=== PATIENT | female | born 1945 | race Caucasian/White ===

== ENCOUNTER 2016-11-03 15:48 | Emergency (ER) | payer MEDICARE, OTHER ==
[~2016-11-03] VITALS: Ht 165.1 cm; Wt 101.4 kg
[~2016-11-03 15:48] MED LIST: ACIPHEX20 MG PO; ACTOS30 MG PO; ALBUTEROL0.09 MG/A1 IH; ALLEGRA180 MG PO; ALLOPURINOL300 MG PO; AMBIEN 10MG10 MG PO; ARICEPT10 MG PO; ASPIRIN 32325 MG/TA1 PO; ASPIRIN 32325 MG/TAB PO; ASPIRIN E.C. 8181 MG PO; ATENOLOL25 MG PO; ATIVAN 0.50.5 MG/TAB PO; AVANDIA2 MG PO; CLEOCIN HC150 MG/CAP PO; CYMBALTA 30MG30 MG PO; CYMBALTA 60MG60 MG PO; DIOVAN160 M1 PO; DIOVAN40 MG PO; DULCOLAX TAB5 MG PO; FEXOFENADINE60 MG PO; GENTLE LAXATIVE10 MG RC; HCTZ 25MG25 MG PO; HUMALOG100 U/ML SC; HUMALOG100 U/ML SQ; IPRATROPIUM BROM3 M1 IH; LAMICTAL 100MG100 MG PO; LANTUS100 U/ML SQ; LEVOTHYROXIN0.088 MG PO; LEVOTHYROXINE0.1 MG PO; LIPITOR 40MG TA40 MG PO; LOPRESSOR 225 MG/TAB PO; LOPRESSOR PO; LOTRIMIN RC; MELATONIN5 M1 SL; MULTIPLE VITAMI1 CAP PO; NEXIUM 20MG CAP20 MG PO; NORCO 325 MG-7.1 TAB PO; OXY IR5 MG PO; PERCOCET 325 MG1 TA2 PO; PLAVIX 75MG TAB75 MG PO; PROAIR HFA0.09 MG/AC IH; SENOKOT S 50 MG1 TAB PO; SINGULAIR10 MG PO; TRICOR 48MG48 MG PO; TYLENOL 325MG325 MG PO; ZOCOR80 MG PO; ZYLOPRIM 300MG300 MG PO; lantus SQ
[2016-11-03 15:50] VITALS: TEMP 97.1
[2016-11-03] MEDS ORDERED: ACTOS30 MG PO (16:19)
[2016-11-03] MEDS ORDERED: TIROSINT88 MC1 PO (16:24)
[2016-11-03] MEDS ORDERED: HCTZ 25MG TAB25 MG PO (16:25)
[2016-11-03] MEDS ORDERED: DIOVAN 160MG160 MG PO (16:25)
[2016-11-03] MEDS ORDERED: CLOTRIM ANTIFUNGAL1% TP (16:26)
[2016-11-03] MEDS ORDERED: MELATONIN5 M1 SL (16:26)
[2016-11-03 16:38] VITALS: BP 148/92; PULSE 72
== END 2016-11-03 16:42 | disposition home or self-care (01) ==
LOC: COL.ER 15:48
DX: S09.90XA Unspecified injury of head, initial encounter (principal); S00.03XA Contusion of scalp, initial encounter; W01.198A Fall on same level from slipping, tripping and stumbling with subsequent striking against other object, initial encounter; Y92.481 Parking lot as the place of occurrence of the external cause; E11.9 Type 2 diabetes mellitus without complications; Z79.02 Long term (current) use of antithrombotics/antiplatelets; Z79.4 Long term (current) use of insulin

== ENCOUNTER → 2016-12-01 | Outpatient (CLI) | payer MEDICARE, OTHER ==
[~2016-12-01] MED LIST changes: +CLOTRIM ANTIFUNGAL1% TP; +DIOVAN 160MG160 MG PO; +HCTZ 25MG TAB25 MG PO; +LASIX 80MG TABL80 MG PO; +NAMZARIC1 ECC PO; +TIROSINT88 MC1 PO; +VITAMIN D 400400 IU PO
== END ==
LOC: BHSO 11:10
DX: F41.1 Generalized anxiety disorder (principal)

== ENCOUNTER 2017-04-17 11:39 | Emergency (ER) | payer MEDICARE, OTHER ==
[~2017-04-17] VITALS: Ht 162.6 cm; Wt 114.5 kg
[~2017-04-17 11:39] MED LIST changes: -LASIX 80MG TABL80 MG PO; -NAMZARIC1 ECC PO; -VITAMIN D 400400 IU PO
[2017-04-17 11:40] VITALS: TEMP 96.4
[2017-04-17 12:32] LABS: BASO % 0.5 % (0.0-2.0); EOS # 0.1 (0.0-0.7); GRAN # 3.6 (1.4-6.5); GRAN % 59.6 % (42.2-75.2); LYMPH # 1.9 (1.2-3.4); LYMPH % 31.2 % (20.0-51.0); MEAN CELL VOLUME 98 fl (80.0-100.0); MEAN CORPUSCULAR HGB CONC 34 g/dl (33.0-37.0); MEAN PLATELET VOLUME 9.5 fl (7.4-10.4); MONO # 0.4 (0.1-0.6); PLATELET COUNT 244 K/mm3 (130-400); RED BLOOD COUNT 3.41 M/mm3 (4.10-5.30); REDCELL DISTRIBUTION WIDTH-CV 14.6 % (11.5-14.5)
[2017-04-17 12:35] LABS: HEMATOCRIT 33.3 % (37.0-47.0); HEMOGLOBIN 11.3 g/dl (12.5-16.0); MEAN CORPUSCULAR HEMOGLOBIN 33 pg (27.0-31.0)
[2017-04-17 13:02] LABS: ADJUSTED CALCIUM 10.4 mg/dL (8.4-10.2); ALBUMIN 4.2 gm/dL (3.5-5.0); BILIRUBIN,TOTAL 0.8 mg/dL (0.0-1.0); CALCIUM 10.6 mg/dL (8.4-10.2); CREATININE, serum 1.24 mg/dL (0.52-1.25); TOTAL PROTEIN 7.7 gm/dL (6.4-8.2)
[2017-04-17 13:03] LABS: POTASSIUM 5.3 mmol/L (3.4-5.0)
[2017-04-17] MEDS ORDERED: LASIX 80MG TABL80 MG PO (13:28)
[2017-04-17] MEDS ORDERED: NAMZARIC1 ECC PO (13:34)
[2017-04-17] MEDS ORDERED: VITAMIN D 400400 IU PO (13:36)
[2017-04-17 17:55] VITALS: BP 169/144; PULSE 118
== END 2017-04-17 18:00 | disposition short-term general hospital (02) ==
LOC: COL.ER 11:39
PROVIDERS: Physician Assistant
DX: S42.291A Other displaced fracture of upper end of right humerus, initial encounter for closed fracture (principal); S52.502A Unspecified fracture of the lower end of left radius, initial encounter for closed fracture; S52.602A Unspecified fracture of lower end of left ulna, initial encounter for closed fracture; S09.90XA Unspecified injury of head, initial encounter; S00.83XA Contusion of other part of head, initial encounter; Y92.009 Unspecified place in unspecified non-institutional (private) residence as the place of occurrence of the external cause; W01.10XA Fall on same level from slipping, tripping and stumbling with subsequent striking against unspecified object, initial encounter; I25.10 Atherosclerotic heart disease of native coronary artery without angina pectoris; I10 Essential (primary) hypertension; E11.9 Type 2 diabetes mellitus without complications; Z79.4 Long term (current) use of insulin; R40.2412 Glasgow coma scale score 13-15, at arrival to emergency department; Z79.02 Long term (current) use of antithrombotics/antiplatelets; Z95.1 Presence of aortocoronary bypass graft
CPT/HCPCS: J1170; J2405

== ENCOUNTER → 2017-05-07 | Outpatient (CLI) | payer MEDICARE, OTHER ==
[~2017-05-07] MED LIST changes: +LASIX 80MG TABL80 MG PO; +NAMZARIC1 ECC PO; +VITAMIN D 400400 IU PO
[2017-05-07 11:18] LABS: MEAN CELL VOLUME 108 fl (80.0-100.0); MEAN CORPUSCULAR HGB CONC 31 g/dl (33.0-37.0); MEAN PLATELET VOLUME 9.2 fl (7.4-10.4); PLATELET COUNT 284 K/mm3 (130-400); RED BLOOD COUNT 2.77 M/mm3 (4.10-5.30); REDCELL DISTRIBUTION WIDTH-CV 17.1 % (11.5-14.5); WHITE BLOOD COUNT 6.5 K/mm3 (4.8-10.8)
[2017-05-07 11:32] LABS: ADJUSTED CALCIUM 10.2 mg/dL (8.4-10.2); BILIRUBIN,TOTAL 0.7 mg/dL (0.0-1.0); CALCIUM 10.2 mg/dL (8.4-10.2); CREATININE, serum 1.04 mg/dL (0.52-1.25); PHOSPHOROUS 3.6 mg/dL (2.5-4.5); POTASSIUM 4.6 mmol/L (3.4-5.0); TOTAL PROTEIN 7.2 gm/dL (6.4-8.2)
[2017-05-07 11:40] LABS: HEMOGLOBIN 9.3 g/dl (12.5-16.0); MEAN CORPUSCULAR HEMOGLOBIN 34 pg (27.0-31.0)
== END ==
LOC: COL.LAB 10:30
PROVIDERS: Internal Medicine
DX: N18.9 Chronic kidney disease, unspecified (principal)

== ENCOUNTER → 2017-06-16 | Outpatient (CLI) | payer MEDICARE, OTHER | LOC: COL.RAD 06-09 13:15 | DX: M75.122 Complete rotator cuff tear or rupture of left shoulder, not specified as traumatic (principal); M62.512 Muscle wasting and atrophy, not elsewhere classified, left shoulder; M19.012 Primary osteoarthritis, left shoulder; M75.82 Other shoulder lesions, left shoulder ==

== ENCOUNTER 2017-07-06 15:11 | Emergency (ER) | payer MEDICARE, OTHER ==
[~2017-07-06] VITALS: Ht 165.1 cm; Wt 104.5 kg
[2017-07-06 15:14] VITALS: TEMP 97.8
[2017-07-06 15:53] LABS: BASO % 0.7 % (0.0-2.0); EOS # 0.1 (0.0-0.7); EOS % 1.9 % (0-4.0); GRAN % 66.6 % (42.2-75.2); HEMOGLOBIN 12.1 g/dl (12.5-16.0); LYMPH # 1.4 (1.2-3.4); LYMPH % 24.2 % (20.0-51.0); MEAN CELL VOLUME 101 fl (80.0-100.0); MEAN CORPUSCULAR HEMOGLOBIN 33 pg (27.0-31.0); MEAN CORPUSCULAR HGB CONC 33 g/dl (33.0-37.0); MEAN PLATELET VOLUME 9.2 fl (7.4-10.4); MONO # 0.4 (0.1-0.6); MONO % 6.3 % (1.7-9.3); PLATELET COUNT 240 K/mm3 (130-400); RED BLOOD COUNT 3.67 M/mm3 (4.10-5.30); REDCELL DISTRIBUTION WIDTH-CV 13.6 % (11.5-14.5); WHITE BLOOD COUNT 5.9 K/mm3 (4.8-10.8)
[2017-07-06 15:56] LABS: PROTHROMBIN TIME 11.6 SECONDS (9.7-12.8)
[2017-07-06 16:09] LABS: ADJUSTED CALCIUM 10.2 mg/dL (8.4-10.2); ALANINE AMINOTRANSFERASE 21 U/L (9-52); ALBUMIN 4.2 gm/dL (3.5-5.0); ALKALINE PHOSPHATASE 104 U/L (50-136); ANION GAP 13 mmol/L (7-16); BILIRUBIN,TOTAL 0.6 mg/dL (0.0-1.0); BLOOD UREA NITROGEN 28 mg/dL (7-17); CALCIUM 10.4 mg/dL (8.4-10.2); CARBON DIOXIDE 23 mmol/L (22-30); CHLORIDE 103 mmol/L (98-107); CREATININE, serum 1.38 mg/dL (0.52-1.25); GLUCOSE 349 mg/dL (74-106); POTASSIUM 4.2 mmol/L (3.4-5.0); SODIUM 138 mmol/L (137-145); TOTAL PROTEIN 7.5 gm/dL (6.4-8.2)
[2017-07-06 16:21] LABS: B-TYPE NATRIURETIC PEPTIDE 713 pg/mL (0-125)
[2017-07-06 16:27] LABS: TROPONIN-I < 0.012 ng/mL (0.000-0.034)
[2017-07-06 17:18] VITALS: BP 190/94; PULSE 100
== END 2017-07-06 17:18 | disposition home or self-care (01) ==
LOC: COL.ER 15:11
PROVIDERS: Family Medicine
DX: F41.9 Anxiety disorder, unspecified (principal); E11.65 Type 2 diabetes mellitus with hyperglycemia; E83.52 Hypercalcemia; I25.10 Atherosclerotic heart disease of native coronary artery without angina pectoris; J44.9 Chronic obstructive pulmonary disease, unspecified; I12.9 Hypertensive chronic kidney disease with stage 1 through stage 4 chronic kidney disease, or unspecified chronic kidney disease; N18.9 Chronic kidney disease, unspecified; Z90.710 Acquired absence of both cervix and uterus; Z95.5 Presence of coronary angioplasty implant and graft; Z79.4 Long term (current) use of insulin; Z79.82 Long term (current) use of aspirin
CPT/HCPCS: J7030

== ENCOUNTER → 2017-08-06 | Outpatient (CLI) | payer MEDICARE, OTHER | LOC: BHSO 14:46 | DX: F41.1 Generalized anxiety disorder (principal) ==

== ENCOUNTER 2017-12-25 13:22 | Emergency (ER) | payer MEDICARE, OTHER ==
[~2017-12-25] VITALS: Ht 162.6 cm; Wt 113.2 kg
[2017-12-25 13:23] VITALS: TEMP 97.8
[2017-12-25] MEDS ORDERED: CYMBALTA 30MG30 MG PO (13:54)
[2017-12-25] MEDS ORDERED: PROLIA60 MG/ML SQ (13:55)
[2017-12-25 17:00] LABS: BASO % 0.3 % (0.0-2.0); EOS # 0.1 (0.0-0.7); EOS % 1.6 % (0-4.0); GRAN # 4.8 (1.4-6.5); GRAN % 68.6 % (42.2-75.2); LYMPH # 1.6 (1.2-3.4); LYMPH % 22.6 % (20.0-51.0); MEAN CELL VOLUME 101 fl (80.0-100.0); MEAN CORPUSCULAR HGB CONC 34 g/dl (33.0-37.0); MEAN PLATELET VOLUME 9.2 fl (7.4-10.4); MONO # 0.5 (0.1-0.6); MONO % 6.8 % (1.7-9.3); PLATELET COUNT 189 K/mm3 (130-400); RED BLOOD COUNT 3.02 M/mm3 (4.10-5.30); REDCELL DISTRIBUTION WIDTH-CV 14.2 % (11.5-14.5)
[2017-12-25 17:04] LABS: HEMATOCRIT 30.4 % (37.0-47.0); HEMOGLOBIN 10.2 g/dl (12.5-16.0); MEAN CORPUSCULAR HEMOGLOBIN 34 pg (27.0-31.0)
[2017-12-25 17:10] LABS: CREATININE, serum 1.27 mg/dL (0.52-1.25); POTASSIUM 4.8 mmol/L (3.4-5.0)
[2017-12-25 20:37] VITALS: BP 123/61; PULSE 90
== END 2017-12-25 21:07 | disposition short-term general hospital (02) ==
LOC: COL.ER 13:22
PROVIDERS: Emergency Medicine
DX: S83.104A Unspecified dislocation of right knee, initial encounter (principal); I72.4 Aneurysm of artery of lower extremity; Z98.890 Other specified postprocedural states; Z79.4 Long term (current) use of insulin; W18.39XA Other fall on same level, initial encounter; X50.0XXA Overexertion from strenuous movement or load, initial encounter; Y92.410 Unspecified street and highway as the place of occurrence of the external cause
CPT/HCPCS: J2704; J2765; J3010; L1846; Q9967

== ENCOUNTER → 2017-12-31 | Outpatient (CLI) | payer MEDICARE, OTHER ==
[~2017-12-31] MED LIST changes: +PROLIA60 MG/ML SQ
== END ==
LOC: BHSO 08:55
DX: F33.41 Major depressive disorder, recurrent, in partial remission (principal)
CPT/HCPCS: G0463

== ENCOUNTER → 2018-01-04 | Outpatient (REF) ==
[2018-01-04 14:31] LABS: ALBUMIN 3.3 gm/dL (3.5-5.0); CALCIUM 10.6 mg/dL (8.4-10.2); CREATININE, serum 1.5 mg/dL (0.52-1.25); PHOSPHOROUS 2.1 mg/dL (2.5-4.5); POTASSIUM 4.7 mmol/L (3.4-5.0)
[2018-01-05 00:24] LABS: PTH,INTACT 69.6 pg/mL (6.6-88.9)
== END ==
LOC: ZLAB.STJ 14:03
PROVIDERS: Internal Medicine
DX: N18.3 Chronic kidney disease, stage 3 (moderate) (principal); E21.3 Hyperparathyroidism, unspecified; Z86.39 Personal history of other endocrine, nutritional and metabolic disease

== ENCOUNTER → 2018-01-05 | Outpatient (CLI) | payer MEDICARE, OTHER | LOC: COL.RAD 14:53 | DX: I72.4 Aneurysm of artery of lower extremity (principal); I97.621 Postprocedural hematoma of a circulatory system organ or structure following other procedure; K44.9 Diaphragmatic hernia without obstruction or gangrene; K56.41 Fecal impaction; Z96.653 Presence of artificial knee joint, bilateral; Z95.820 Peripheral vascular angioplasty status with implants and grafts | CPT/HCPCS: Q9967 ==

== ENCOUNTER → 2018-01-17 | Outpatient (REF) ==
[2018-01-17 09:31] LABS: COLLECTION METHOD CLEAN CATCH
[2018-01-17 09:37] LABS: PH 5 (5-8); SQUAMOUS EPITHELIAL 0-2 /hpf; URINE APPEARANCE Clear; URINE BACTERIA None Seen /hpf; URINE BILIRUBIN Negative (NEGATIVE); URINE BLOOD Negative (NEGATIVE); URINE COLOR Yellow; URINE GLUCOSE Negative (NEGATIVE); URINE KETONE Negative (NEGATIVE); URINE LEUKOCYTE ESTERASE Negative (NEGATIVE); URINE NITRATE Negative (NEGATIVE); URINE PROTEIN(semi-quant) 1+ (NEGATIVE); URINE UROBILINOGEN Negative (NEGATIVE)
== END ==
LOC: ZLAB.STJ 09:27
PROVIDERS: Internal Medicine
DX: N17.9 Acute kidney failure, unspecified (principal)

== ENCOUNTER → 2018-01-24 | Outpatient (REF) ==
[2018-01-24 09:51] LABS: HEMATOCRIT 31.9 % (37.0-47.0); HEMOGLOBIN 10.3 g/dl (12.5-16.0)
[2018-01-24 10:05] LABS: ALBUMIN 3.6 gm/dL (3.5-5.0); CALCIUM 10.5 mg/dL (8.4-10.2); CREATININE, serum 1.31 mg/dL (0.52-1.25); PHOSPHOROUS 3.1 mg/dL (2.5-4.5); POTASSIUM 3.9 mmol/L (3.4-5.0)
[2018-01-24 22:44] LABS: PTH,INTACT 67.5 pg/mL (6.6-88.9)
[2018-01-25 00:24] LABS: URINE MICROALBUMIN 62.9 mg/dL (0.0-1.7)
== END ==
LOC: ZLAB.STJ 09:40
PROVIDERS: Internal Medicine
DX: E55.9 Vitamin D deficiency, unspecified (principal); N18.3 Chronic kidney disease, stage 3 (moderate); R80.8 Other proteinuria; M81.0 Age-related osteoporosis without current pathological fracture; E21.3 Hyperparathyroidism, unspecified

== ENCOUNTER → 2018-01-27 | Outpatient (REF) ==
[2018-01-27 09:27] LABS: COLLECTION METHOD CLEAN CATCH
[2018-01-27 09:35] LABS: MUCOUS Present /lpf; PH 5 (5-8); SQUAMOUS EPITHELIAL 0-2 /hpf; URINE APPEARANCE Clear; URINE BACTERIA None Seen /hpf; URINE BILIRUBIN Negative (NEGATIVE); URINE BLOOD Negative (NEGATIVE); URINE COLOR Yellow; URINE GLUCOSE 1+ (NEGATIVE); URINE KETONE Negative (NEGATIVE); URINE LEUKOCYTE ESTERASE Negative (NEGATIVE); URINE NITRATE Negative (NEGATIVE); URINE PROTEIN(semi-quant) 2+ (NEGATIVE); URINE UROBILINOGEN Negative (NEGATIVE)
== END ==
LOC: ZLAB.STJ 09:22
PROVIDERS: Internal Medicine Gastroenterology
DX: R30.0 Dysuria (principal)

== ENCOUNTER 2018-03-04 09:48 | Emergency (ER) | payer MEDICARE, OTHER ==
[~2018-03-04] VITALS: Ht 165.1 cm; Wt 115.5 kg
[~2018-03-04 09:48] MED LIST changes: -ASPIRIN 32325 MG/TA1 PO
[2018-03-04 09:59] VITALS: BP 139/80; PULSE 104; TEMP 97.7
[2018-03-04] MEDS ORDERED: LASIX 20MG TABL20 MG PO (10:16)
[2018-03-04] MEDS ORDERED: PEPCID 20MG TAB20 MG PO (10:21)
[2018-03-04 11:13] LABS: BASO % 0.5 % (0.0-2.0); EOS # 0.2 (0.0-0.7); EOS % 3.1 % (0-4.0); GRAN # 3.8 (1.4-6.5); GRAN % 60.5 % (42.2-75.2); LYMPH # 1.8 (1.2-3.4); LYMPH % 28.8 % (20.0-51.0); MEAN CELL VOLUME 102 fl (80.0-100.0); MEAN CORPUSCULAR HEMOGLOBIN 33 pg (27.0-31.0); MEAN CORPUSCULAR HGB CONC 33 g/dl (33.0-37.0); MEAN PLATELET VOLUME 9.2 fl (7.4-10.4); MONO # 0.4 (0.1-0.6); MONO % 6.8 % (1.7-9.3); PLATELET COUNT 234 K/mm3 (130-400); RED BLOOD COUNT 3.32 M/mm3 (4.10-5.30); REDCELL DISTRIBUTION WIDTH-CV 15.7 % (11.5-14.5)
[2018-03-04 11:15] LABS: HEMATOCRIT 33.7 % (37.0-47.0)
[2018-03-04 11:22] LABS: INR 0.9 (0.8-3.0); PROTHROMBIN TIME 10.6 SECONDS (9.7-12.8)
[2018-03-04 11:25] LABS: CALCIUM 9.9 mg/dL (8.4-10.2); CREATININE, serum 1.34 mg/dL (0.52-1.25); PARTIAL THROMBOPLASTIN TIME 33.3 SECONDS (26.0-37.0)
== END 2018-03-04 12:00 | disposition home or self-care (01) ==
LOC: COL.ER 09:48
PROVIDERS: Physician Assistant
DX: H11.32 Conjunctival hemorrhage, left eye (principal); I25.10 Atherosclerotic heart disease of native coronary artery without angina pectoris; I10 Essential (primary) hypertension; Z79.02 Long term (current) use of antithrombotics/antiplatelets; Z79.82 Long term (current) use of aspirin

== ENCOUNTER → 2019-07-03 | Outpatient (CLI) | payer MEDICARE, OTHER ==
[~2019-07-03] MED LIST changes: +LASIX 20MG TABL20 MG PO; +PEPCID 20MG TAB20 MG PO
[2019-07-04 07:38] LABS: COLLECTION METHOD CLEAN CATCH
[2019-07-04 07:39] LABS: MUCOUS Present /lpf; PH 5 (5-8); URINE APPEARANCE Cloudy; URINE BACTERIA Rare /hpf; URINE BILIRUBIN Negative (NEGATIVE); URINE BLOOD 1+ (NEGATIVE); URINE COLOR Yellow; URINE GLUCOSE 1+ (NEGATIVE); URINE KETONE Negative (NEGATIVE); URINE LEUKOCYTE ESTERASE 2+ (NEGATIVE); URINE NITRATE Negative (NEGATIVE); URINE PROTEIN(semi-quant) 2+ (NEGATIVE); URINE UROBILINOGEN Negative (NEGATIVE)
== END ==
LOC: ZLAB.STJ 14:30
PROVIDERS: Internal Medicine
DX: R35.0 Frequency of micturition (principal)

== ENCOUNTER → 2019-08-21 | Outpatient (CLI) | payer MEDICARE, OTHER ==
[~2019-08-21] MED LIST changes: +BENICAR 20MG TA20 MG PO; +CALCITRIOL PO; +CALCIUM CITRATE1 TA1 PO; +HUMALOG PEN100 U/ML SQ; +IMDUR 60MG60 MG/TAB PO; +LEVEMIR FLEX100 U/ML SQ; +NITROSTAT0.4 MG/TAB SL; -PEPCID 20MG TAB20 MG PO; +PEPCID40 MG PO
== END ==
LOC: BHSO 14:49
DX: F33.1 Major depressive disorder, recurrent, moderate (principal)
CPT/HCPCS: G0463

== ENCOUNTER 2019-10-04 15:54 | Emergency (ER) | payer MEDICARE, OTHER ==
[~2019-10-04] VITALS: Ht 165.1 cm; Wt 123.2 kg
[2019-10-04 16:18] VITALS: TEMP 97.2
[2019-10-04 17:49] VITALS: BP 164/79; PULSE 74
== END 2019-10-04 17:49 | disposition home or self-care (01) ==
LOC: COL.ER 15:54
DX: M79.652 Pain in left thigh (principal); R58 Hemorrhage, not elsewhere classified; E66.01 Morbid (severe) obesity due to excess calories; I10 Essential (primary) hypertension; E11.9 Type 2 diabetes mellitus without complications; I25.10 Atherosclerotic heart disease of native coronary artery without angina pectoris; Z90.89 Acquired absence of other organs; Z79.4 Long term (current) use of insulin; Z79.02 Long term (current) use of antithrombotics/antiplatelets; Z79.82 Long term (current) use of aspirin; Z95.9 Presence of cardiac and vascular implant and graft, unspecified

== ENCOUNTER 2019-12-12 18:00 | Inpatient (IN) | payer MEDICARE, OTHER ==
[~2019-12-12] VITALS: Ht 162.6 cm; Wt 118.5 kg
[2019-12-12] MEDS ORDERED: PROZAC 10MG10 MG PO (18:27)
[2019-12-12 20:19] LABS: BASO % 0.4 % (0.0-2.0); EOS # 0.1 (0.0-0.7); EOS % 1.2 % (0-4.0); GRAN # 5.4 (1.4-6.5); GRAN % 77.5 % (42.2-75.2); LYMPH # 1.1 (1.2-3.4); MEAN CELL VOLUME 103 fl (80.0-100.0); MEAN CORPUSCULAR HGB CONC 31 g/dl (33.0-37.0); MEAN PLATELET VOLUME 10.1 fl (7.4-10.4); MONO # 0.3 (0.1-0.6); MONO % 4.5 % (1.7-9.3); PLATELET COUNT 170 K/mm3 (130-400); RED BLOOD COUNT 3.05 M/mm3 (4.10-5.30); REDCELL DISTRIBUTION WIDTH-CV 15.2 % (11.5-14.5)
[2019-12-12 20:23] LABS: HEMATOCRIT 31.5 % (37.0-47.0); HEMOGLOBIN 9.8 g/dl (12.5-16.0); MEAN CORPUSCULAR HEMOGLOBIN 32 pg (27.0-31.0)
[2019-12-12 20:26] LABS: ALBUMIN 3.8 gm/dL (3.5-5.0); BILIRUBIN,TOTAL 0.3 mg/dL (0.0-1.0); CALCIUM 9.3 mg/dL (8.4-10.2); CREATININE, serum 1.61 (0.52-1.25); POTASSIUM 4.8 mmol/L (3.4-5.0)
--- NOTE | 2019-12-12 22:37 | NUR ---
Pt. arrived to the floor via stretcher. Pt. is A&OX3, assessment complete. INT to rt. forearm patent. Bilateral pedal pulses +2. Imobilizer brace to rt. knee. Pt. denies pain or other needs, call light within reach.
[2019-12-12 23:20] VITALS: BP 165/59; PULSE 91; TEMP 98.2
[2019-12-13] MEDS ORDERED: ZOLOFT 100MG100 MG PO (00:05)
[2019-12-13 03:27] VITALS: BP 148/50; PULSE 81; TEMP 98.3
[2019-12-13 08:23] LABS: BASO % 0.3 % (0.0-2.0); EOS # 0.1 (0.0-0.7); EOS % 1.8 % (0-4.0); GRAN # 3.8 (1.4-6.5); GRAN % 61.3 % (42.2-75.2); LYMPH # 1.8 (1.2-3.4); LYMPH % 28.2 % (20.0-51.0); MEAN CELL VOLUME 105 fl (80.0-100.0); MEAN CORPUSCULAR HGB CONC 31 g/dl (33.0-37.0); MEAN PLATELET VOLUME 9.8 fl (7.4-10.4); MONO # 0.5 (0.1-0.6); MONO % 8.1 % (1.7-9.3); PLATELET COUNT 164 K/mm3 (130-400); RED BLOOD COUNT 2.58 M/mm3 (4.10-5.30); REDCELL DISTRIBUTION WIDTH-CV 15.6 % (11.5-14.5)
[2019-12-13 08:31] LABS: HEMOGLOBIN 8.3 g/dl (12.5-16.0); MEAN CORPUSCULAR HEMOGLOBIN 32 pg (27.0-31.0)
[2019-12-13 08:32] VITALS: BP 141/46; PULSE 78; TEMP 97.6
[2019-12-13 08:33] LABS: CALCIUM 8.4 mg/dL (8.4-10.2); CREATININE, serum 1.58 (0.52-1.25); POTASSIUM 4.1 mmol/L (3.4-5.0)
--- NOTE | 2019-12-13 09:30 | NUR ---
Patient alert and oriented, answers questions appropriately. See assessment. Bruising noted to bilateral eyes, vision normal. RLE with brace in place, pulses palpable. NWB to RLE. No c/o pain or discomfort.
--- NOTE | 2019-12-13 10:38 | NUR ---
Dr Eldridge notified of consult.
--- NOTE | 2019-12-13 11:17 | NUR ---
Room Cleaner met with patient to discuss discharge planning. Patient has lived at [facility] for about two years with her Fritz (ph#[phone]). Patient states her Fritz has Parkinsons. Patient sees Dr. Ernandez for primary care and has her medications administered by the staff at [place]. Patient uses a CPAP and electric scooter at home. Patient is currently on oxygen but reports she normally does not wear oxygen. Patient reports she is independent with ADLS and can normally transfer independently to and from her scooter. Patient has DPOA paperwork located in EMR. Patient states she plans to return to [facility] upon discharge but that she may need to go to [facility] instead of returning to [place]. ZOE contacted Claudio at [facility] and faxed a referral. ZOE to continue to follow.
[2019-12-13 12:03] VITALS: BP 155/49; PULSE 88; TEMP 97.7
[2019-12-13 19:40] VITALS: BP 131/41; PULSE 94; TEMP 98.7
--- NOTE | 2019-12-13 20:00 | NUR ---
Report received. 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 A&Ox3. Assessment complete. VS stable. Denies pain/shortness of breath/nausea. Noted to have bruising to face/eyes/lips/nose. Also bruising to bilat lower ext. Immobolizer to right lower extremity. Plan of care discussed for this shift to include HS meds/CPAP/Calling for needs. Verbalizes understanding. Denies needs. Call light in reach. WIll monitor.
[2019-12-13 23:40] VITALS: BP 148/44; PULSE 61; TEMP 98.2
--- NOTE | 2019-12-14 04:16 | NUR ---
Up to comode with two assist. Voided without difficulty. C/O "upset stomach." States she usually takes pepcid-missed a dose at some point. Ordered for 0900 this am. Given at this time per request. Will monitor.
[2019-12-14 04:23] VITALS: BP 149/43; PULSE 78; TEMP 97.6
[2019-12-14 05:10] LABS: FOLATE (FOLIC ACID) 11.2 ng/mL (>=4.0)
[2019-12-14 07:14] LABS: BASO % 0.4 % (0.0-2.0); EOS # 0.2 (0.0-0.7); GRAN # 4.3 (1.4-6.5); LYMPH # 1.9 (1.2-3.4); LYMPH % 27.1 % (20.0-51.0); MEAN CELL VOLUME 106 fl (80.0-100.0); MEAN CORPUSCULAR HGB CONC 31 g/dl (33.0-37.0); MEAN PLATELET VOLUME 10.2 fl (7.4-10.4); MONO # 0.5 (0.1-0.6); MONO % 7.2 % (1.7-9.3); PLATELET COUNT 152 K/mm3 (130-400); RED BLOOD COUNT 2.53 M/mm3 (4.10-5.30); REDCELL DISTRIBUTION WIDTH-CV 15.7 % (11.5-14.5)
[2019-12-14 07:17] LABS: CALCIUM 8.4 mg/dL (8.4-10.2); CREATININE, serum 1.97 (0.52-1.25); POTASSIUM 5.1 mmol/L (3.4-5.0)
[2019-12-14 07:19] LABS: HEMATOCRIT 26.9 % (37.0-47.0); HEMOGLOBIN 8.2 g/dl (12.5-16.0); MEAN CORPUSCULAR HEMOGLOBIN 32 pg (27.0-31.0)
[2019-12-14 08:00] VITALS: BP 132/43; PULSE 71; TEMP 98.7
--- NOTE | 2019-12-14 08:00 | NUR ---
Patient in bed resting. Alert and oriented x 3. Assessment complete. Eccymosis noted to eyes/nose. RLE in brace. Pedal pulses palpable. Denies pain at this time. Patient states she has been using CPAP when sleeping. Denies further needs at this time.
--- NOTE | 2019-12-14 11:50 | NUR ---
First visit from the outside solar sales consultant. No needs right now.
[2019-12-14 12:55] VITALS: BP 130/40; PULSE 81; TEMP 98.1
--- NOTE | 2019-12-14 15:56 | NUR ---
Vice President Of Sales attended clinical rounds with the team and patient likely to discharge tomorrow. SW contacted Claudio at [facility] and faxed updates. ZOE to continue to follow.
[2019-12-14 16:00] VITALS: BP 148/41; PULSE 78; TEMP 98.2
--- NOTE | 2019-12-14 17:56 | NUR ---
Patient has done well throughout the day. Slept intermittently throughout the day. States she did not have a good night, CPAP on when sleeping. Denies pain at this time. Denies further needs at this time. Will report off to overnight cashier.
[2019-12-14 19:08] VITALS: BP 130/41; PULSE 82; TEMP 98.6
--- NOTE | 2019-12-14 20:00 | NUR ---
Report received. 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 A&Ox3. Assessment complete. VS stable. Denies pain/nausea/shortness of breath. States she is ready to go back to [facility] tomorrow. Immobolizer to Right lower extremity. Pedal pulses strong. Neuro check WNL. Denies questions/concerns. Call light in reach. Will monitor.
--- NOTE | 2019-12-14 23:00 | NUR ---
Up to bathroom at this time. Used walker-minimal assist. Movement much better this shift than previous. Was able to assist more. States she is having more pain tonight-rating 8/10 on pain scale to right knee-described as throbbing. Blaine given per dr benoit. Will monitor.
[2019-12-15] VITALS (7 sets, daily range): BP systolic 123–1232; BP diastolic 39–73; PULSE 58–74; TEMP 97.6–998.3
[2019-12-15 06:19] LABS: BASO % 0.5 % (0.0-2.0); EOS # 0.2 (0.0-0.7); EOS % 3.5 % (0-4.0); GRAN # 2.7 (1.4-6.5); GRAN % 47.5 % (42.2-75.2); LYMPH # 2.3 (1.2-3.4); LYMPH % 40.5 % (20.0-51.0); MEAN CELL VOLUME 106 fl (80.0-100.0); MEAN CORPUSCULAR HGB CONC 31 g/dl (33.0-37.0); MONO # 0.5 (0.1-0.6); MONO % 7.8 % (1.7-9.3); PLATELET COUNT 141 K/mm3 (130-400); RED BLOOD COUNT 2.44 M/mm3 (4.10-5.30); REDCELL DISTRIBUTION WIDTH-CV 15.6 % (11.5-14.5)
[2019-12-15 06:24] LABS: HEMATOCRIT 25.9 % (37.0-47.0); HEMOGLOBIN 7.9 g/dl (12.5-16.0); MEAN CORPUSCULAR HEMOGLOBIN 32 pg (27.0-31.0)
[2019-12-15 06:34] LABS: CALCIUM 8.6 mg/dL (8.4-10.2); CREATININE, serum 1.93 (0.52-1.25)
[2019-12-15 09:53] LABS: RETIC # 0.06 M/mm3 (0.02-0.16); RETIC % 2.7 % (0.5-3.52)
[2019-12-15 09:57] LABS: IRON,SERUM 29 ug/dL (35-150)
[2019-12-15 10:06] LABS: TOTAL IRON BINDING CAPACITY 302 ug/dL (265-497)
--- NOTE | 2019-12-15 15:44 | NUR ---
Curtain Framer attended clinical rounds with the team and patient to discharge to [facility] tomorrow. SW contacted Claudio and faxed updates. ZOE to continue to follow.
--- NOTE | 2019-12-15 17:13 | NUR ---
Sitting up on edge of bed eating supper.
--- NOTE | 2019-12-15 18:16 | NUR ---
Patient has done well throughout the day. Has been up to restroom throughout the day. States she has been able to move around more today than yesterday. Brace maintained to RLE. Pedal pulses intact. Denies pain throuhout the day. Sat up this afternoon for supper. Denies further needs at this time. Will report off to night auditor.
--- NOTE | 2019-12-15 20:00 | NUR ---
Report received. 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 Assessment complete. VS stable. A&Ox3. Denies pain/shortness of breath/nausea. Right forearm INT flushes without difficulty. Pedal Pulses +2 bilat. Immobolizer removed for adjustment to maintain proper alignment. Neuros WNL. Plan of care discussed for HS meds/bedside glucose/need for stool specimen. Denies questions/concerns. Call light in reach. Will monitor.
[2019-12-16 04:15] VITALS: BP 137/40; PULSE 53; TEMP 97.7
[2019-12-16 06:03] LABS: BASO % 0.5 % (0.0-2.0); EOS # 0.2 (0.0-0.7); EOS % 3.6 % (0-4.0); GRAN # 2.9 (1.4-6.5); GRAN % 50.3 % (42.2-75.2); LYMPH # 2.2 (1.2-3.4); LYMPH % 37.2 % (20.0-51.0); MEAN CELL VOLUME 106 fl (80.0-100.0); MEAN CORPUSCULAR HGB CONC 30 g/dl (33.0-37.0); MEAN PLATELET VOLUME 10.1 fl (7.4-10.4); MONO # 0.5 (0.1-0.6); MONO % 8.1 % (1.7-9.3); PLATELET COUNT 144 K/mm3 (130-400); REDCELL DISTRIBUTION WIDTH-CV 15.4 % (11.5-14.5)
[2019-12-16 06:11] LABS: CALCIUM 8.7 mg/dL (8.4-10.2); CREATININE, serum 1.79 (0.52-1.25); HEMATOCRIT 25.4 % (37.0-47.0); HEMOGLOBIN 7.7 g/dl (12.5-16.0); MEAN CORPUSCULAR HEMOGLOBIN 32 pg (27.0-31.0); POTASSIUM 4.8 mmol/L (3.4-5.0)
[2019-12-16 07:56] VITALS: BP 142/44; PULSE 66; TEMP 97.7
--- NOTE | 2019-12-16 08:00 | NUR ---
Patient in bed resting. Alert and oriented x 3. Assessment complete. Brace to RLE. Edema +2 noted. Denies pain at this time. Denies further needs at this time.
[2019-12-16] MEDS ORDERED: NOVOLOG 100U100 U/M1 SQ (11:24)
[2019-12-16] MEDS ORDERED: Desenex/Lotrimin AF TP (11:25)
[2019-12-16] MEDS ORDERED: NORCO 325 MG-51 TAB PO (11:29)
[2019-12-16] MEDS ORDERED: NATURAL IRON65 MG PO (11:36)
[2019-12-16 11:54] VITALS: BP 150/54; PULSE 65; TEMP 98.5
[2019-12-16 12:15] VITALS: BP 150/54; PULSE 65; TEMP 98.5
--- NOTE | 2019-12-16 13:45 | NUR ---
Patient transfering to [facility]. Attempted to call report to Monserrat COREY. iNT to right forarm discontinued. Brace to RLE. Denies pain. x1 assist to restroom and transfer to wheelchair. Denies further needs at this time. Patient out with surgical staff and [facility] staff.
--- NOTE | 2019-12-16 14:12 | NUR ---
ZOE received a call from provider's assistant store director about Patient being discharged today. ZOE contacted Claudio to inquire about transportation at 1230 or 100. Claudio indicated that patient can be picked up at 1:00, and reminded this ZOE about discharge paperwork. ZOE contacted providers assistant store director to inform of transport time.
--- NOTE | 2019-12-16 14:17 | NUR ---
SW did contact Patients to inform him that patient was discharging.
== END 2019-12-16 13:47 | DRG 560 ==
LOC: COL.ER 18:00 → SURG 21:18
PROVIDERS: Emergency Medicine; Nurse Practitioner Family; Physician Assistant; ADMIT Student in an Organized Health Care Education/Training Program
PROC: 0SWCXJZ Revision of Synthetic Substitute in Right Knee Joint, External Approach (ICD-10-PCS; principal; 2019-12-12)
DX: T84.022A Instability of internal right knee prosthesis, initial encounter (principal); Z68.41 Body mass index [BMI] 40.0-44.9, adult; Z91.81 History of falling; S02.2XXA Fracture of nasal bones, initial encounter for closed fracture; W05.2XXA Fall from non-moving motorized mobility scooter, initial encounter; I10 Essential (primary) hypertension; E78.5 Hyperlipidemia, unspecified; E66.01 Morbid (severe) obesity due to excess calories; Z66 Do not resuscitate; E03.9 Hypothyroidism, unspecified; E11.22 Type 2 diabetes mellitus with diabetic chronic kidney disease; I12.9 Hypertensive chronic kidney disease with stage 1 through stage 4 chronic kidney disease, or unspecified chronic kidney disease; N18.9 Chronic kidney disease, unspecified; I25.10 Atherosclerotic heart disease of native coronary artery without angina pectoris; Z95.1 Presence of aortocoronary bypass graft; G47.33 Obstructive sleep apnea (adult) (pediatric); Z96.653 Presence of artificial knee joint, bilateral; Z88.1 Allergy status to other antibiotic agents; Z88.8 Allergy status to other drugs, medicaments and biological substances; H43.11 Vitreous hemorrhage, right eye; D53.9 Nutritional anemia, unspecified; J45.909 Unspecified asthma, uncomplicated; F41.8 Other specified anxiety disorders; E20.9 Hypoparathyroidism, unspecified
CPT/HCPCS: OP; 99223-AI; 99232-AI; G0378; J1815; J2405; J2704; J7030; L1846

== ENCOUNTER → 2020-01-10 | Outpatient (CLI) | payer MEDICARE, OTHER ==
[~2020-01-10] MED LIST changes: +Desenex/Lotrimin AF TP; +NATURAL IRON65 MG PO; +NORCO 325 MG-51 TAB PO; +NOVOLOG 100U100 U/M1 SQ; +PROZAC 10MG10 MG PO; +ZOLOFT 100MG100 MG PO
[2020-01-10 14:38] LABS: CALCIUM 10.1 mg/dL (8.4-10.2); CREATININE, serum 1.86 (0.52-1.25); POTASSIUM 4.9 mmol/L (3.4-5.0)
== END ==
LOC: ZLAB.STJ 13:13
PROVIDERS: Internal Medicine
DX: E11.65 Type 2 diabetes mellitus with hyperglycemia (principal)

== ENCOUNTER → 2020-01-22 | Outpatient (CLI) | payer MEDICARE, OTHER ==
[2020-01-22 15:52] LABS: BASO % 0.6 % (0.0-2.0); EOS # 0.2 (0.0-0.7); EOS % 3.7 % (0-4.0); GRAN # 4.2 (1.4-6.5); GRAN % 64.6 % (42.2-75.2); HEMOGLOBIN 10.2 g/dl (12.5-16.0); LYMPH # 1.5 (1.2-3.4); LYMPH % 23.1 % (20.0-51.0); MEAN CELL VOLUME 103 fl (80.0-100.0); MEAN CORPUSCULAR HEMOGLOBIN 32 pg (27.0-31.0); MEAN CORPUSCULAR HGB CONC 31 g/dl (33.0-37.0); MEAN PLATELET VOLUME 10.4 fl (7.4-10.4); MONO # 0.5 (0.1-0.6); MONO % 7.5 % (1.7-9.3); PLATELET COUNT 235 K/mm3 (130-400)
[2020-01-22 15:54] LABS: HEMATOCRIT 32.8 % (37.0-47.0)
== END ==
LOC: ZLAB.STJ 14:01
PROVIDERS: Internal Medicine
DX: D64.9 Anemia, unspecified (principal)

== ENCOUNTER → 2020-02-14 | Outpatient (CLI) | payer MEDICARE, OTHER | LOC: BHSO 13:20 | DX: F06.32 Mood disorder due to known physiological condition with major depressive-like episode (principal) | CPT/HCPCS: G0463 ==

== ENCOUNTER → 2020-02-23 | Outpatient (CLI) | payer MEDICARE, OTHER ==
[2020-02-23 17:40] LABS: CALCIUM 10.1 mg/dL (8.4-10.2); CREATININE, serum 1.68 (0.52-1.25); POTASSIUM 4.8 mmol/L (3.4-5.0)
== END ==
LOC: ZLAB.STJ 16:00
PROVIDERS: Internal Medicine Nephrology
DX: I12.9 Hypertensive chronic kidney disease with stage 1 through stage 4 chronic kidney disease, or unspecified chronic kidney disease (principal); N18.3 Chronic kidney disease, stage 3 (moderate)

== ENCOUNTER → 2020-04-19 | Outpatient (CLI) | payer MEDICARE, OTHER ==
[2020-04-19 17:34] LABS: COLLECTION METHOD CATHETER
[2020-04-19 17:53] LABS: MUCOUS Present /lpf; PH 5 (5-8); SQUAMOUS EPITHELIAL 0-2 /hpf; URINE APPEARANCE Cloudy; URINE BACTERIA Rare /hpf; URINE BILIRUBIN Negative (NEGATIVE); URINE BLOOD Negative (NEGATIVE); URINE COLOR Yellow; URINE GLUCOSE Negative (NEGATIVE); URINE KETONE Negative (NEGATIVE); URINE LEUKOCYTE ESTERASE 2+ (NEGATIVE); URINE NITRATE Negative (NEGATIVE); URINE PROTEIN(semi-quant) 1+ (NEGATIVE); URINE RBC 0-2 /hpf; URINE UROBILINOGEN Negative (NEGATIVE)
== END ==
LOC: ZLAB.STJ 17:22
PROVIDERS: Internal Medicine
DX: N39.0 Urinary tract infection, site not specified (principal)

== ENCOUNTER → 2020-07-15 | Outpatient (CLI) | payer MEDICARE, OTHER ==
[2020-07-15 13:51] LABS: CALCIUM 10.4 mg/dL (8.4-10.2); CREATININE, serum 2.3 (0.52-1.25); POTASSIUM 4.6 mmol/L (3.4-5.0)
[2020-07-15 14:00] LABS: BASO % 0.6 % (0.0-2.0); EOS # 0.3 (0.0-0.7); EOS % 5.3 % (0-4.0); GRAN # 2.5 (1.4-6.5); HEMATOCRIT 33.3 % (37.0-47.0); HEMOGLOBIN 10.5 g/dl (12.5-16.0); LYMPH # 1.5 (1.2-3.4); LYMPH % 31.5 % (20.0-51.0); MEAN CELL VOLUME 104 fl (80.0-100.0); MEAN CORPUSCULAR HEMOGLOBIN 33 pg (27.0-31.0); MEAN CORPUSCULAR HGB CONC 32 g/dl (33.0-37.0); MEAN PLATELET VOLUME 9.9 fl (7.4-10.4); MONO # 0.4 (0.1-0.6); MONO % 9.2 % (1.7-9.3); PLATELET COUNT 188 K/mm3 (130-400); RED BLOOD COUNT 3.19 M/mm3 (4.10-5.30); REDCELL DISTRIBUTION WIDTH-CV 15.1 % (11.5-14.5)
[2020-07-15 14:21] LABS: THYROID STIMULATING HORMONE 1.51 uIU/mL (0.465-4.680)
== END ==
LOC: ZLAB.STJ 12:20
PROVIDERS: Internal Medicine
DX: E11.22 Type 2 diabetes mellitus with diabetic chronic kidney disease (principal); I12.9 Hypertensive chronic kidney disease with stage 1 through stage 4 chronic kidney disease, or unspecified chronic kidney disease; N18.30 Chronic kidney disease, stage 3 unspecified; E03.4 Atrophy of thyroid (acquired); Z79.4 Long term (current) use of insulin; Z86.39 Personal history of other endocrine, nutritional and metabolic disease

== ENCOUNTER → 2020-08-06 | Outpatient (CLI) | payer MEDICARE, OTHER ==
[2020-08-06 13:07] LABS: BASO # 0.1 (0.0-0.2); BASO % 0.9 % (0.0-2.0); EOS # 0.3 (0.0-0.7); EOS % 5.3 % (0-4.0); GRAN # 3.4 (1.4-6.5); GRAN % 58.3 % (42.2-75.2); HEMOGLOBIN 10.4 g/dl (12.5-16.0); LYMPH # 1.5 (1.2-3.4); LYMPH % 25.5 % (20.0-51.0); MEAN CELL VOLUME 104 fl (80.0-100.0); MEAN CORPUSCULAR HEMOGLOBIN 32 pg (27.0-31.0); MEAN CORPUSCULAR HGB CONC 31 g/dl (33.0-37.0); MEAN PLATELET VOLUME 9.9 fl (7.4-10.4); MONO # 0.6 (0.1-0.6); MONO % 9.7 % (1.7-9.3); PLATELET COUNT 199 K/mm3 (130-400); RED BLOOD COUNT 3.22 M/mm3 (4.10-5.30); REDCELL DISTRIBUTION WIDTH-CV 14.9 % (11.5-14.5)
[2020-08-06 13:09] LABS: HEMATOCRIT 33.5 % (37.0-47.0)
[2020-08-06 13:13] LABS: CALCIUM 10.2 mg/dL (8.4-10.2); CREATININE, serum 2.1 (0.52-1.25); POTASSIUM 4.9 mmol/L (3.4-5.0)
== END ==
LOC: ZLAB.STJ 12:39
PROVIDERS: Internal Medicine
DX: N18.30 Chronic kidney disease, stage 3 unspecified (principal)

== ENCOUNTER → 2020-08-09 | Outpatient (CLI) | payer MEDICARE, OTHER ==
[2020-08-09 09:55] LABS: ALBUMIN 3.2 gm/dL (3.5-5.0); CALCIUM 9.8 mg/dL (8.4-10.2); CREATININE, serum 2.23 (0.52-1.25); POTASSIUM 4.5 mmol/L (3.4-5.0)
== END ==
LOC: ZLAB.STJ 09:33
PROVIDERS: Internal Medicine Nephrology
DX: E21.1 Secondary hyperparathyroidism, not elsewhere classified (principal); I12.9 Hypertensive chronic kidney disease with stage 1 through stage 4 chronic kidney disease, or unspecified chronic kidney disease; N18.30 Chronic kidney disease, stage 3 unspecified

== ENCOUNTER → 2020-10-11 | Outpatient (CLI) | payer MEDICARE, OTHER ==
[2020-10-11 12:41] LABS: COLLECTION METHOD CATHETER
[2020-10-11 12:51] LABS: PH 5 (5-8); SQUAMOUS EPITHELIAL 0-2 /hpf; URINE APPEARANCE Hazy; URINE BACTERIA Moderate /hpf; URINE BILIRUBIN Negative (NEGATIVE); URINE BLOOD Negative (NEGATIVE); URINE COLOR Yellow; URINE GLUCOSE Negative (NEGATIVE); URINE KETONE Negative (NEGATIVE); URINE LEUKOCYTE ESTERASE 2+ (NEGATIVE); URINE NITRATE Negative (NEGATIVE); URINE PROTEIN(semi-quant) 1+ (NEGATIVE); URINE UROBILINOGEN Negative (NEGATIVE)
== END ==
LOC: ZLAB.STJ 12:31
PROVIDERS: Internal Medicine
DX: N39.0 Urinary tract infection, site not specified (principal)

== ENCOUNTER → 2020-12-04 | Outpatient (CLI) | payer MEDICARE, OTHER ==
[~2020-12-04] MED LIST changes: +FLEXERIL 1010 MG/TAB PO; +LOPRESSOR 550 MG/TAB PO; +LOTSPY TOP; +MASON NATURAL2000 IU PO; +NATURAL IRON65 MG; +PROZAC40 MG PO; +RANEXA 500MG T500 MG PO; +SINGULAIR 110 MG/TAB PO; -SINGULAIR10 MG PO; +TESSALON P100 MG/CAP PO; +WELLBUTRIN SR150 M1 PO; +WELLBUTRIN XL150 MG PO
[2020-12-04 15:31] LABS: COLLECTION METHOD CATHETER
[2020-12-04 15:41] LABS: PH 5 (5-8); SQUAMOUS EPITHELIAL 0-2 /hpf; URINE APPEARANCE Clear; URINE BACTERIA None Seen /hpf; URINE BILIRUBIN Negative (NEGATIVE); URINE BLOOD Negative (NEGATIVE); URINE COLOR Straw; URINE GLUCOSE Negative (NEGATIVE); URINE KETONE Negative (NEGATIVE); URINE LEUKOCYTE ESTERASE Negative (NEGATIVE); URINE NITRATE Negative (NEGATIVE); URINE PROTEIN(semi-quant) Negative (NEGATIVE); URINE RBC 0-2 /hpf; URINE UROBILINOGEN Negative (NEGATIVE)
== END ==
LOC: ZLAB.STJ 13:15
PROVIDERS: Internal Medicine
DX: R35.0 Frequency of micturition (principal)

== ENCOUNTER 2020-12-19 11:03 | Inpatient (IN) | payer MEDICARE, OTHER ==
[~2020-12-19] VITALS: Ht 162.6 cm; Wt 106.8 kg
[~2020-12-19 11:03] MED LIST changes: -FLEXERIL 1010 MG/TAB PO; -LOPRESSOR 550 MG/TAB PO; -LOTSPY TOP; -MASON NATURAL2000 IU PO; -NATURAL IRON65 MG; -PROZAC40 MG PO; -RANEXA 500MG T500 MG PO; -TESSALON P100 MG/CAP PO; -WELLBUTRIN SR150 M1 PO; -WELLBUTRIN XL150 MG PO
[2020-12-19 12:06] LABS: MEAN CELL VOLUME 106 fl (80.0-100.0); MEAN CORPUSCULAR HGB CONC 31 g/dl (33.0-37.0); MEAN PLATELET VOLUME 9.4 fl (7.4-10.4); PLATELET COUNT 162 K/mm3 (130-400); RED BLOOD COUNT 2.85 M/mm3 (4.10-5.30); REDCELL DISTRIBUTION WIDTH-CV 14.4 % (11.5-14.5)
[2020-12-19 12:07] LABS: HEMATOCRIT 30.2 % (37.0-47.0); HEMOGLOBIN 9.2 g/dl (12.5-16.0); MEAN CORPUSCULAR HEMOGLOBIN 32 pg (27.0-31.0)
[2020-12-19 12:09] LABS: INR 1.1 (0.8-3.0); PROTHROMBIN TIME 12.2 SECONDS (9.7-12.8)
[2020-12-19 12:18] LABS: ALBUMIN 3.5 gm/dL (3.5-5.0); BILIRUBIN,TOTAL 0.3 mg/dL (0.0-1.0); CALCIUM 10.5 mg/dL (8.4-10.2); CREATININE, serum 2.08 (0.52-1.25); POTASSIUM 4.8 mmol/L (3.4-5.0); TOTAL PROTEIN 6.7 gm/dL (6.4-8.2)
[2020-12-19 12:20] LABS: COLLECTION METHOD CLEAN CATCH
[2020-12-19 12:27] LABS: AMORPHOUS CRYSTAL Present /uL; MUCOUS Present /lpf; PH 5 (5-8); URINE APPEARANCE Turbid; URINE BACTERIA Moderate /hpf; URINE BILIRUBIN Negative (NEGATIVE); URINE BLOOD 2+ (NEGATIVE); URINE COLOR Yellow; URINE GLUCOSE Negative (NEGATIVE); URINE KETONE Negative (NEGATIVE); URINE LEUKOCYTE ESTERASE 3+ (NEGATIVE); URINE NITRATE Positive (NEGATIVE); URINE PROTEIN(semi-quant) 2+ (NEGATIVE); URINE RBC 20-50 /hpf; URINE UROBILINOGEN Negative (NEGATIVE)
[2020-12-19 12:43] LABS: TROPONIN-I 0.048 ng/mL (0.000-0.035)
[2020-12-19 12:50] LABS: BAND 4 % (0-10); LYMPHOCYTE 5 % (20.0-51.0); NEUTROPHILS 89 % (42.0-75.2)
[2020-12-19 12:51] LABS: HYPOCHROMIA 3+
[2020-12-19 12:52] LABS: PLATELET ESTIMATE NORMAL (NORMAL)
[2020-12-19] MEDS ORDERED: PROZAC40 MG PO (15:09)
[2020-12-19] MEDS ORDERED: WELLBUTRIN SR150 M1 PO (15:10)
[2020-12-19] MEDS ORDERED: BENICAR 20MG TA20 MG PO (15:10)
[2020-12-19] MEDS ORDERED: FLEXERIL 1010 MG/TAB PO (15:11)
[2020-12-19] MEDS ORDERED: TESSALON P100 MG/CAP PO (15:11)
[2020-12-19] MEDS ORDERED: PLAVIX 75MG TAB75 MG PO (15:12)
[2020-12-19] MEDS ORDERED: LOTSPY TOP (15:12)
[2020-12-19 15:18] LABS: MAGNESIUM 1.5 mg/dL (1.6-2.3)
[2020-12-19 15:48] LABS: THYROID STIMULATING HORMONE 1.92 uIU/mL (0.465-4.680)
[2020-12-19 20:00] VITALS: BP 129/68; PULSE 85; TEMP 99.1
[2020-12-19 22:35] LABS: FOLATE (FOLIC ACID) 15.1 ng/mL (7.0-31.4)
[2020-12-19] MEDS ORDERED: WELLBUTRIN XL150 MG PO (22:54)
--- NOTE | 2020-12-19 22:56 | NUR ---
PATIENT ARRIVED TO THE FLOOR AT APPROXIMATELY 1910. PATIENT ABLE TO STAND AND TAKE A COUPLE STEPS TO THE BED. PATIENT USING BSC TO GO TO THE BATHROOM. PATIENT ALERT AND ORIENTED X'S 4 AND V/S STABLE. PATIENT ORIENTED TO ROOM. NO NEW ISSUES OR CONCERNS VERBALIZED BY PATIENT AT THIS TIME.
[2020-12-19] MEDS ORDERED: CALCIUM CITRATE1 TA1 PO (22:57)
[2020-12-19] MEDS ORDERED: NATURAL IRON65 MG (22:58)
[2020-12-19] MEDS ORDERED: MASON NATURAL2000 IU PO (23:01)
[2020-12-19] MEDS ORDERED: LOPRESSOR 550 MG/TAB PO (23:34)
[2020-12-20] VITALS (575 sets, daily range): BP systolic 94–153; BP diastolic 41–86; PULSE 60–106; TEMP 97.7–98.3; O2SAT 83–100
[2020-12-20 06:22] LABS: BASO % 0.3 % (0.0-2.0); EOS # 0.1 (0.0-0.7); EOS % 0.8 % (0-4.0); GRAN # 7.5 (1.4-6.5); GRAN % 70.1 % (42.2-75.2); LYMPH # 1.9 (1.2-3.4); LYMPH % 17.6 % (20.0-51.0); MEAN CELL VOLUME 105 fl (80.0-100.0); MEAN CORPUSCULAR HGB CONC 31 g/dl (33.0-37.0); MEAN PLATELET VOLUME 9.9 fl (7.4-10.4); MONO # 1.2 (0.1-0.6); MONO % 10.8 % (1.7-9.3); PLATELET COUNT 141 K/mm3 (130-400); RED BLOOD COUNT 2.53 M/mm3 (4.10-5.30); REDCELL DISTRIBUTION WIDTH-CV 14.6 % (11.5-14.5)
[2020-12-20 06:38] LABS: CREATININE, serum 2.24 (0.52-1.25); HEMATOCRIT 26.5 % (37.0-47.0); HEMOGLOBIN 8.1 g/dl (12.5-16.0); MAGNESIUM 2.2 mg/dL (1.6-2.3); MEAN CORPUSCULAR HEMOGLOBIN 32 pg (27.0-31.0); POTASSIUM 4.4 mmol/L (3.4-5.0)
--- NOTE | 2020-12-20 09:25 | NUR ---
Pt assessment complete. Pt is laying in bed upon entry, arouses to voice. She is A/Ox 4. Her breathing is currently even and unlabored on RA. Pt has occasional SOB, worse with exertion. Denies any pain at this time. Reports she feels this is anxiety related, as she has had several traumatic events recently. Pt states she would like to go back to sleep as she usually sleeps until 11:00am. Will get up in the chair later. POC discussed with her. Call light within reach.
--- NOTE | 2020-12-20 10:01 | NUR ---
Initial visit; Patient thanked Retail Greeting Card Merchandiser for introducing herself and offering God's blessings and keeping her in Retail Greeting Card Merchandiser's prayers.
--- NOTE | 2020-12-20 13:00 | NUR ---
Patient going down for heart cath
--- NOTE | 2020-12-20 14:30 | NUR ---
PATIENT ARRIVES TO ICU FROM [facility]. SHE IS SUPINE, RIGHT GROIN SITE EXAMINED AND WNL. PULSES 2+ UPON PALPATION. SHE IS ALERT AND ORIENTED. FLAT TIME RESTRICTIONS REVIEWED WITH THE PATIENT. VS WNL. CARE TAKEN OVER AT THIS TIME.
--- NOTE | 2020-12-20 14:54 | NUR ---
Dry End Operator attended clinical rounds with the team and patient to have heart cath today. Following rounds, ZOE met with patient to discuss discharge planning. Patient lives at [facility]. Patient reports her , Fritz was recently moved to [facility]. Patient sees Dr. Ernandez for primary care and has most of her medications mailed to her home from [place]. Patient [facility]. Patient uses a motorized chair for ambulation. Patient states she is mostly independent but has staff assistance from [place] as needed. Patient has Advance Directives in EMR which designate her Fritz and son, Willian as DPOA-HC. Patient plans to return to [facility] upon discharge and will need SW assistance with coordinating transportation from [facility]. ZOE contacted Claudio at [facility] and faxed updates, which he will provide to the [facility]. Claudio advised they will provide transportation upon discharge. Later in the day, ZOE spoke with RN, Laura who advised patient was moved down to ICU after her heart cath. ZOE updated Claudio at [facility]. ZOE collaborated with RICHARD Enriquez who advised patient should be able to return to [facility] upon discharge based on today's evaluation. Plan will be to return to [facility] upon discharge.
--- NOTE | 2020-12-20 19:06 | NUR ---
REPORT GIVEN TO LEORA GONZALEZ
[2020-12-21] VITALS (709 sets, daily range): BP systolic 129–140; BP diastolic 51–94; PULSE 59–78; TEMP 97.6–98.4; O2SAT 84–100
[2020-12-21 05:26] LABS: BASO % 0.3 % (0.0-2.0); EOS # 0.3 (0.0-0.7); EOS % 3.3 % (0-4.0); GRAN # 5.9 (1.4-6.5); GRAN % 67.5 % (42.2-75.2); LYMPH # 1.3 (1.2-3.4); LYMPH % 15.3 % (20.0-51.0); MEAN CELL VOLUME 104 fl (80.0-100.0); MEAN CORPUSCULAR HGB CONC 31 g/dl (33.0-37.0); MEAN PLATELET VOLUME 9.7 fl (7.4-10.4); MONO # 1.1 (0.1-0.6); PLATELET COUNT 146 K/mm3 (130-400); RED BLOOD COUNT 2.57 M/mm3 (4.10-5.30); REDCELL DISTRIBUTION WIDTH-CV 14.5 % (11.5-14.5)
[2020-12-21 05:30] LABS: HEMATOCRIT 26.6 % (37.0-47.0); HEMOGLOBIN 8.2 g/dl (12.5-16.0); MEAN CORPUSCULAR HEMOGLOBIN 32 pg (27.0-31.0)
[2020-12-21 05:36] LABS: CALCIUM 10.2 mg/dL (8.4-10.2); CREATININE, serum 2.04 (0.52-1.25); POTASSIUM 4.4 mmol/L (3.4-5.0)
--- NOTE | 2020-12-21 08:00 | NUR ---
Report recieved by overnight RN all questions answered. Patient found sleeping in bed. Arrouses to verbal stimuli. Alert and oriented x4. Heart sounds regular, lung sounds diminished, bowel sounds active all 4 quadrants. Patient denies any pain or discomfort. IV infusing into right hand without difficulty. Vital signs stable, patient is on 2L via [place]. Pure wick in place, draining yellow cloudy urine. Site to right groin clean dry intact. Call helms within reach, all saftey maintained.
--- NOTE | 2020-12-21 11:30 | NUR ---
Social work made aware of discharge orders, requesting to coordinate care back to [facility] [place].
--- NOTE | 2020-12-21 11:45 | NUR ---
Patient taken off 2L oxygen via [place]. Maintains SpO2 above 91%. Denies SOB. Will continue to monitor.
[2020-12-21] MEDS ORDERED: RANEXA 500MG T500 MG PO (13:31)
--- NOTE | 2020-12-21 14:00 | NUR ---
Discharge instructions reviewed with patient, verbalized understanding. Packet given in regards to angioseal. Right groin angioseal clean dry intact. Education provided to patient. IV removed without difficulty. Pure wick removed, depends placed. Patient remains stable on room air. Awaiting berry picker machine operator from [facility]. Will continue to monitor.
--- NOTE | 2020-12-21 14:50 | NUR ---
Staff member from [facility] present to pick patient up. Patient transfered to wheel chair without difficulty. All belongings in hand. Nurse from facility called, unable to give report at this time. Voicemail with return phone number left.
--- NOTE | 2020-12-21 16:19 | NUR ---
ZOE update. ZOE made aware of patient DC. Patient will DC to [facility], SW sent DC fax and setup transportation. Transport 12:30 pm. Late note. Nothing Follows
== END 2020-12-21 15:00 | DRG 250 ==
LOC: COL.ER 11:03 → MEDICAL 13:21 → COL.ER 13:23 → ICU 12-20 14:10
PROVIDERS: Emergency Medicine; Physician Assistant; ADMIT Family Medicine
PROC: 02703ZZ Dilation of Coronary Artery, One Artery, Percutaneous Approach (ICD-10-PCS; principal; 2020-12-20)
PROC: 4A023N7 Measurement of Cardiac Sampling and Pressure, Left Heart, Percutaneous Approach (ICD-10-PCS; 2020-12-20)
PROC: B2111ZZ Fluoroscopy of Multiple Coronary Arteries using Low Osmolar Contrast (ICD-10-PCS; 2020-12-20)
DX: I21.4 Non-ST elevation (NSTEMI) myocardial infarction (principal); J96.01 Acute respiratory failure with hypoxia; I13.0 Hypertensive heart and chronic kidney disease with heart failure and stage 1 through stage 4 chronic kidney disease, or unspecified chronic kidney disease; N39.0 Urinary tract infection, site not specified; N17.9 Acute kidney failure, unspecified; Z68.41 Body mass index [BMI] 40.0-44.9, adult; E78.5 Hyperlipidemia, unspecified; I25.10 Atherosclerotic heart disease of native coronary artery without angina pectoris; E03.9 Hypothyroidism, unspecified; N18.30 Chronic kidney disease, stage 3 unspecified; E11.22 Type 2 diabetes mellitus with diabetic chronic kidney disease; J45.909 Unspecified asthma, uncomplicated; F41.9 Anxiety disorder, unspecified; I50.9 Heart failure, unspecified; D50.9 Iron deficiency anemia, unspecified; E20.9 Hypoparathyroidism, unspecified; G47.33 Obstructive sleep apnea (adult) (pediatric); I27.20 Pulmonary hypertension, unspecified; F32.9 Major depressive disorder, single episode, unspecified; Z95.1 Presence of aortocoronary bypass graft; Z90.710 Acquired absence of both cervix and uterus; Z85.42 Personal history of malignant neoplasm of other parts of uterus; Z96.653 Presence of artificial knee joint, bilateral; Z90.49 Acquired absence of other specified parts of digestive tract; Z79.4 Long term (current) use of insulin; Z79.82 Long term (current) use of aspirin; Z88.0 Allergy status to penicillin; Z88.8 Allergy status to other drugs, medicaments and biological substances; Z88.6 Allergy status to analgesic agent; Z79.899 Other long term (current) drug therapy; Z86.73 Personal history of transient ischemic attack (TIA), and cerebral infarction without residual deficits; Z90.13 Acquired absence of bilateral breasts and nipples; Z85.3 Personal history of malignant neoplasm of breast
CPT/HCPCS: 99223-AI; 99232-AI; 99239; C1725; C1760; C1769; C1887; C1894; G0378; J0583; J0696; J1644; J1815; J1940; J2250; J3010; J3475

== ENCOUNTER → 2020-12-30 | Outpatient (CLI) | payer MEDICARE, OTHER ==
[~2020-12-30] MED LIST changes: +FLEXERIL 1010 MG/TAB PO; +LOPRESSOR 550 MG/TAB PO; +LOTSPY TOP; +MASON NATURAL2000 IU PO; +NATURAL IRON65 MG; +PROZAC40 MG PO; +RANEXA 500MG T500 MG PO; +TESSALON P100 MG/CAP PO; +WELLBUTRIN SR150 M1 PO; +WELLBUTRIN XL150 MG PO
[2020-12-30 14:28] LABS: BASO # 0.1 (0.0-0.2); BASO % 0.8 % (0.0-2.0); EOS # 0.2 (0.0-0.7); EOS % 2.9 % (0-4.0); GRAN # 5.7 (1.4-6.5); GRAN % 72.2 % (42.2-75.2); LYMPH # 1.4 (1.2-3.4); LYMPH % 17.2 % (20.0-51.0); MEAN CELL VOLUME 105 fl (80.0-100.0); MEAN CORPUSCULAR HEMOGLOBIN 32 pg (27.0-31.0); MEAN CORPUSCULAR HGB CONC 31 g/dl (33.0-37.0); MEAN PLATELET VOLUME 9.7 fl (7.4-10.4); MONO # 0.5 (0.1-0.6); PLATELET COUNT 287 K/mm3 (130-400); RED BLOOD COUNT 3.09 M/mm3 (4.10-5.30); REDCELL DISTRIBUTION WIDTH-CV 14.7 % (11.5-14.5)
[2020-12-30 14:32] LABS: HEMATOCRIT 32.5 % (37.0-47.0)
[2020-12-30 14:49] LABS: ALBUMIN 4.1 gm/dL (3.5-5.0); BILIRUBIN,TOTAL 0.2 mg/dL (0.0-1.0); CALCIUM 10.6 mg/dL (8.4-10.2); CHOLESTEROL RISK RATIO 1.9; CREATININE, serum 2.62 (0.52-1.25); POTASSIUM 4.3 mmol/L (3.4-5.0); TOTAL PROTEIN 7.9 gm/dL (6.4-8.2)
[2020-12-30 15:19] LABS: THYROID STIMULATING HORMONE 3.7 uIU/mL (0.465-4.680)
[2020-12-31 00:44] LABS: URINE MICROALBUMIN 48.9 mg/dL (0.0-1.7)
== END ==
LOC: ZLAB.STJ 13:13
PROVIDERS: Internal Medicine
DX: E11.22 Type 2 diabetes mellitus with diabetic chronic kidney disease (principal); E11.65 Type 2 diabetes mellitus with hyperglycemia; N18.30 Chronic kidney disease, stage 3 unspecified

== ENCOUNTER → 2021-01-20 | Outpatient (CLI) | payer MEDICARE, OTHER ==
[2021-01-20 16:41] LABS: CALCIUM 10.3 mg/dL (8.4-10.2); CREATININE, serum 2.05 (0.52-1.25); POTASSIUM 4.7 mmol/L (3.4-5.0)
== END ==
LOC: ZCOL.LAB 12:31
PROVIDERS: Internal Medicine
DX: E11.65 Type 2 diabetes mellitus with hyperglycemia (principal)

== ENCOUNTER → 2021-01-30 | Outpatient (CLI) | payer MEDICARE, OTHER ==
[2021-01-31 10:37] LABS: CALCIUM 6.9 mg/dL (8.4-10.2); CREATININE, serum 2.13 (0.52-1.25); PHOSPHOROUS 3.7 mg/dL (2.5-4.5); POTASSIUM 5.1 mmol/L (3.4-5.0)
== END ==
LOC: ZLAB.STJ 14:00
PROVIDERS: Internal Medicine
DX: E11.65 Type 2 diabetes mellitus with hyperglycemia (principal); E11.22 Type 2 diabetes mellitus with diabetic chronic kidney disease; N18.30 Chronic kidney disease, stage 3 unspecified; E21.5 Disorder of parathyroid gland, unspecified

== ENCOUNTER 2021-01-31 11:19 | Emergency (ER) | payer MEDICARE, OTHER ==
[~2021-01-31] VITALS: Ht 162.6 cm; Wt 106.8 kg
[2021-01-31 11:33] VITALS: TEMP 97.8
[2021-01-31 12:13] LABS: BASO % 0.8 % (0.0-2.0); EOS # 0.2 (0.0-0.7); EOS % 3.1 % (0-4.0); GRAN # 3.2 (1.4-6.5); GRAN % 63.8 % (42.2-75.2); LYMPH # 1.2 (1.2-3.4); LYMPH % 22.6 % (20.0-51.0); MEAN CELL VOLUME 105 fl (80.0-100.0); MEAN CORPUSCULAR HGB CONC 31 g/dl (33.0-37.0); MEAN PLATELET VOLUME 9.5 fl (7.4-10.4); MONO # 0.5 (0.1-0.6); MONO % 9.3 % (1.7-9.3); PLATELET COUNT 171 K/mm3 (130-400); RED BLOOD COUNT 2.93 M/mm3 (4.10-5.30); REDCELL DISTRIBUTION WIDTH-CV 15.2 % (11.5-14.5)
[2021-01-31 12:15] LABS: HEMATOCRIT 30.8 % (37.0-47.0); HEMOGLOBIN 9.4 g/dl (12.5-16.0); MEAN CORPUSCULAR HEMOGLOBIN 32 pg (27.0-31.0)
[2021-01-31 12:27] LABS: BILIRUBIN,TOTAL 0.1 mg/dL (0.0-1.0); CALCIUM 8.5 mg/dL (8.4-10.2); CREATININE, serum 2.55 (0.52-1.25); POTASSIUM 5.1 mmol/L (3.4-5.0); TOTAL PROTEIN 7.7 gm/dL (6.4-8.2)
[2021-01-31 13:13] VITALS: BP 134/78; PULSE 78
== END 2021-01-31 13:13 | disposition home or self-care (01) ==
LOC: COL.ER 11:19
PROVIDERS: Physician Assistant
DX: E11.22 Type 2 diabetes mellitus with diabetic chronic kidney disease (principal); I12.9 Hypertensive chronic kidney disease with stage 1 through stage 4 chronic kidney disease, or unspecified chronic kidney disease; N18.30 Chronic kidney disease, stage 3 unspecified; R79.9 Abnormal finding of blood chemistry, unspecified; R79.89 Other specified abnormal findings of blood chemistry; D63.1 Anemia in chronic kidney disease; J45.909 Unspecified asthma, uncomplicated; E78.5 Hyperlipidemia, unspecified; E20.9 Hypoparathyroidism, unspecified; F41.9 Anxiety disorder, unspecified; F32.9 Major depressive disorder, single episode, unspecified; I25.10 Atherosclerotic heart disease of native coronary artery without angina pectoris; E66.01 Morbid (severe) obesity due to excess calories; Z95.1 Presence of aortocoronary bypass graft; Z85.3 Personal history of malignant neoplasm of breast; Z85.42 Personal history of malignant neoplasm of other parts of uterus; Z98.61 Coronary angioplasty status; Z88.6 Allergy status to analgesic agent; Z88.1 Allergy status to other antibiotic agents; Z88.8 Allergy status to other drugs, medicaments and biological substances; Z79.4 Long term (current) use of insulin; Z79.51 Long term (current) use of inhaled steroids; Z79.82 Long term (current) use of aspirin; Z79.899 Other long term (current) drug therapy; Z79.890 Hormone replacement therapy; Z79.02 Long term (current) use of antithrombotics/antiplatelets
CPT/HCPCS: J7030

== ENCOUNTER → 2021-02-06 | Outpatient (REF) ==
[2021-02-06 15:12] LABS: CALCIUM 8.8 mg/dL (8.4-10.2); CREATININE, serum 1.87 (0.52-1.25)
[2021-02-06 15:35] LABS: POTASSIUM 5.9 mmol/L (3.4-5.0)
== END ==
LOC: ZLAB.STJ 14:51
PROVIDERS: Internal Medicine
DX: N18.30 Chronic kidney disease, stage 3 unspecified (principal)

== ENCOUNTER → 2021-02-13 | Outpatient (CLI) | payer MEDICARE, OTHER ==
[2021-02-13 14:35] LABS: ALBUMIN 3.5 gm/dL (3.5-5.0); CALCIUM 9.7 mg/dL (8.4-10.2); CREATININE, serum 1.98 (0.52-1.25); PHOSPHOROUS 5.3 mg/dL (2.5-4.5); POTASSIUM 5.1 mmol/L (3.4-5.0)
== END ==
LOC: ZLAB.STJ 13:24
PROVIDERS: Internal Medicine Nephrology
DX: E21.1 Secondary hyperparathyroidism, not elsewhere classified (principal)

== ENCOUNTER → 2021-02-14 | Outpatient (CLI) | payer MEDICARE, OTHER | LOC: ZLAB.STJ 13:43 | DX: E21.1 Secondary hyperparathyroidism, not elsewhere classified (principal) ==

== ENCOUNTER → 2021-05-01 | Outpatient (CLI) | payer MEDICARE, OTHER ==
[~2021-05-01] MED LIST changes: +ATIVAN 1MG T1 MG/TAB PO; +DESYREL 50MG50 MG PO; +FLOVENT 44MCG I13 GM IH; +PRISTIQ 50 MG T50 MG PO
[2021-05-01 13:22] LABS: BASO % 0.8 % (0.0-2.0); EOS # 0.2 (0.0-0.7); EOS % 4.2 % (0-4.0); GRAN # 3.1 (1.4-6.5); GRAN % 59.2 % (42.2-75.2); LYMPH # 1.4 (1.2-3.4); LYMPH % 26.4 % (20.0-51.0); MEAN CELL VOLUME 106 fl (80.0-100.0); MEAN CORPUSCULAR HGB CONC 31 g/dl (33.0-37.0); MEAN PLATELET VOLUME 9.8 fl (7.4-10.4); MONO # 0.5 (0.1-0.6); MONO % 9.2 % (1.7-9.3); PLATELET COUNT 184 K/mm3 (130-400); RED BLOOD COUNT 3.03 M/mm3 (4.10-5.30); REDCELL DISTRIBUTION WIDTH-CV 14.9 % (11.5-14.5)
[2021-05-01 13:26] LABS: HEMOGLOBIN 9.8 g/dl (12.5-16.0); MEAN CORPUSCULAR HEMOGLOBIN 32 pg (27.0-31.0)
== END ==
LOC: ZCOL.LAB 13:12
PROVIDERS: Internal Medicine
DX: J45.909 Unspecified asthma, uncomplicated (principal); D63.1 Anemia in chronic kidney disease; E61.1 Iron deficiency; E11.65 Type 2 diabetes mellitus with hyperglycemia; D51.9 Vitamin B12 deficiency anemia, unspecified

== ENCOUNTER → 2021-07-04 | Outpatient (CLI) | payer MEDICARE, OTHER ==
[2021-07-05 00:50] LABS: CALCIUM 10.7 mg/dL (8.4-10.2); CREATININE, serum 1.9 mg/dL (0.57-1.11)
[2021-07-05 01:05] LABS: POTASSIUM 9.1 mmol/L (3.5-4.5)
== END ==
LOC: COL.LAB 13:40
PROVIDERS: Internal Medicine
DX: Z01.89 Encounter for other specified special examinations (principal)

== ENCOUNTER 2021-07-05 01:56 | Emergency (ER) | payer MEDICARE, OTHER ==
[~2021-07-05 01:56] MED LIST changes: -ATIVAN 1MG T1 MG/TAB PO; -DESYREL 50MG50 MG PO; -FLOVENT 44MCG I13 GM IH; -PRISTIQ 50 MG T50 MG PO
[2021-07-05 01:57] VITALS: TEMP 98.1
[2021-07-05 02:19] LABS: BASO % 0.6 % (0.0-2.0); EOS # 0.3 K/mm3 (0.0-0.7); EOS % 3.8 % (0-4.0); GRAN # 4.3 K/mm3 (1.4-6.5); GRAN % 62.4 % (42.2-75.2); HEMATOCRIT 30.5 % (37.0-47.0); HEMOGLOBIN 9.7 g/dl (12.5-16.0); LYMPH # 1.7 K/mm3 (1.2-3.4); LYMPH % 24.3 % (20.0-51.0); MEAN CELL VOLUME 98 fl (80.0-100.0); MEAN CORPUSCULAR HEMOGLOBIN 31 pg (27.0-31.0); MEAN CORPUSCULAR HGB CONC 32 g/dl (33.0-37.0); MEAN PLATELET VOLUME 9.1 fl (7.4-10.4); MONO # 0.6 K/mm3 (0.1-0.6); MONO % 8.6 % (1.7-9.3); PLATELET COUNT 198 K/mm3 (130-400); REDCELL DISTRIBUTION WIDTH-CV 13.6 % (11.5-14.5)
[2021-07-05 02:37] LABS: ALBUMIN 3.1 gm/dL (3.4-4.8); BILIRUBIN,TOTAL 0.2 mg/dL (0.2-1.2); CALCIUM 10.9 mg/dL (8.4-10.2); CREATININE, serum 2.64 mg/dL (0.57-1.11); POTASSIUM 5.2 mmol/L (3.5-4.5); TOTAL PROTEIN 6.7 gm/dL (6.2-8.1)
[2021-07-05 04:40] VITALS: BP 188/65; PULSE 60
== END 2021-07-05 04:40 | disposition home or self-care (01) ==
LOC: COL.ER 01:56
PROVIDERS: Emergency Medicine
DX: E87.5 Hyperkalemia (principal); N17.9 Acute kidney failure, unspecified; I25.10 Atherosclerotic heart disease of native coronary artery without angina pectoris; I10 Essential (primary) hypertension; E78.5 Hyperlipidemia, unspecified; E03.9 Hypothyroidism, unspecified; Z79.82 Long term (current) use of aspirin; Z79.890 Hormone replacement therapy; Z79.899 Other long term (current) drug therapy
CPT/HCPCS: J7040

== ENCOUNTER 2021-08-26 22:59 | Inpatient (IN) | payer MEDICARE, OTHER ==
[~2021-08-26] VITALS: Ht 172.7 cm; Wt 107.2 kg
[2021-08-26 23:13] LABS: BASO # 0.1 K/mm3 (0.0-0.2); BASO % 0.6 % (0.0-2.0); EOS # 0.1 K/mm3 (0.0-0.7); EOS % 0.6 % (0-4.0); GRAN # 6.7 K/mm3 (1.4-6.5); GRAN % 80.5 % (42.2-75.2); HEMOGLOBIN 11.4 g/dl (12.5-16.0); LYMPH # 0.9 K/mm3 (1.2-3.4); LYMPH % 11.3 % (20.0-51.0); MEAN CELL VOLUME 98 fl (80.0-100.0); MEAN CORPUSCULAR HEMOGLOBIN 32 pg (27.0-31.0); MEAN CORPUSCULAR HGB CONC 32 g/dl (33.0-37.0); MEAN PLATELET VOLUME 9.2 fl (7.4-10.4); MONO # 0.5 K/mm3 (0.1-0.6); MONO % 6.4 % (1.7-9.3); PLATELET COUNT 203 K/mm3 (130-400); RED BLOOD COUNT 3.61 M/mm3 (4.10-5.30); REDCELL DISTRIBUTION WIDTH-CV 13.3 % (11.5-14.5)
[2021-08-26 23:14] LABS: HEMATOCRIT 35.5 % (37.0-47.0)
[2021-08-26 23:18] LABS: ARTERIAL BLD GAS O2 SATURATION 95.3 % (92-100); ARTERIAL BLD GAS TCO2 CT 22.3; ARTERIAL BLOOD GAS BASE EXCESS -5.7 (-2-2); ARTERIAL BLOOD GAS HCO3 20.9 meq/L (22-26); ARTERIAL BLOOD GAS PCO2 45.8 mmHg (35-45); ARTERIAL BLOOD GAS PO2 83.2 mmHg (80-100); ARTERIAL BLOOD GAS pH 7.28 (7.35-7.45)
[2021-08-26 23:27] LABS: ALANINE AMINOTRANSFERASE 19 U/L (0-55); ALBUMIN 3.4 gm/dL (3.4-4.8); ALKALINE PHOSPHATASE 119 U/L (40-150); ANION GAP 11 mmol/L (7-16); AST,SGOT 36 U/L (5-34); BILIRUBIN,TOTAL 0.8 mg/dL (0.2-1.2); BLOOD UREA NITROGEN 35 mg/dL (10-20); CALCIUM 8.4 mg/dL (8.4-10.2); CARBON DIOXIDE 21 mmol/L (23-31); CHLORIDE 111 mmol/L (98-107); CREATININE, serum 1.95 mg/dL (0.57-1.11); GLUCOSE 242 mg/dL (70-99); POTASSIUM 5.6 mmol/L (3.5-4.5); SODIUM 143 mmol/L (136-145); TOTAL PROTEIN 7.5 gm/dL (6.2-8.1)
[2021-08-26 23:32] LABS: TROPONIN-I < 0.010 ng/mL (0.00-0.033)
[2021-08-27 00:51] LABS: COLLECTION METHOD CLEAN CATCH
[2021-08-27 01:16] LABS: MUCOUS Present (NOT PRESENT); PH 5 (5-8); SQUAMOUS EPITHELIAL None Seen /hpf (0-10); URINE APPEARANCE Cloudy (CLEAR/HAZY); URINE BACTERIA Rare (NONE SEEN); URINE BILIRUBIN Negative (NEGATIVE); URINE BLOOD 1+ (NEGATIVE); URINE COLOR Yellow (YELLOW); URINE GLUCOSE 2+ (NEGATIVE); URINE KETONE Negative (NEGATIVE); URINE LEUKOCYTE ESTERASE Negative (NEGATIVE); URINE NITRATE Negative (NEGATIVE); URINE PROTEIN(semi-quant) 3+ (NEGATIVE); URINE UROBILINOGEN Negative (NEGATIVE)
[2021-08-27] MEDS ORDERED: ATIVAN 1MG T1 MG/TAB PO (03:16)
[2021-08-27] MEDS ORDERED: PRISTIQ 50 MG T50 MG PO (03:16)
[2021-08-27] MEDS ORDERED: DESYREL 50MG50 MG PO (03:24)
[2021-08-27] MEDS ORDERED: FLOVENT 44MCG I13 GM IH (03:32)
[2021-08-27 06:01] LABS: CALCIUM 8.9 mg/dL (8.4-10.2); CREATININE, serum 2.06 mg/dL (0.57-1.11); POTASSIUM 5.5 mmol/L (3.5-4.5)
[2021-08-27 06:02] LABS: HEMOGLOBIN 10.5 g/dl (12.5-16.0); MEAN CELL VOLUME 101 fl (80.0-100.0); MEAN CORPUSCULAR HEMOGLOBIN 31 pg (27.0-31.0); MEAN CORPUSCULAR HGB CONC 31 g/dl (33.0-37.0); MEAN PLATELET VOLUME 9.3 fl (7.4-10.4); PLATELET COUNT 195 K/mm3 (130-400); RED BLOOD COUNT 3.35 M/mm3 (4.10-5.30); REDCELL DISTRIBUTION WIDTH-CV 13.3 % (11.5-14.5)
[2021-08-27 06:04] LABS: HEMATOCRIT 33.7 % (37.0-47.0)
[2021-08-27 07:21] LABS: BAND 11 % (0-10); LYMPHOCYTE 2 % (20.0-51.0); NEUTROPHILS 87 % (42.0-75.2); PLATELET ESTIMATE NORMAL (NORMAL)
[2021-08-27 17:14] VITALS: BP 153/56; PULSE 80; TEMP 97.9
--- NOTE | 2021-08-27 17:29 | NUR ---
PT ARRIVED TO ROOM 319 [facility]IA [facility]. A&O, VSS. ON 3 L NC. DENIES PAIN/NAUSEA. REQUESTING SOMETHING TO EAT AT THIS TIME. DENIES FURTHER NEEDS AT THIS TIME.
[2021-08-27 20:20] VITALS: BP 152/57; PULSE 82; TEMP 98.1
--- NOTE | 2021-08-27 23:01 | NUR ---
ALERT AMD OX4. DENIES CHEST PAIN OR SOA. CPAP ON AT HS PER RT. PM MEDS GIVEN. BLOOD SUGAR OBTAINED AND TREATED. CALL LIGHT WITH IN REACH. NEEDS MET.
[2021-08-28] VITALS (7 sets, daily range): BP systolic 125–164; BP diastolic 45–65; PULSE 78–94; TEMP 97.6–98.5
--- NOTE | 2021-08-28 05:22 | NUR ---
PT RESTED THROUGH THE NIGHT WITHOUT INCIDENT. NEEDS MET.
[2021-08-28 08:20] LABS: MEAN CELL VOLUME 98 fl (80.0-100.0); MEAN CORPUSCULAR HGB CONC 33 g/dl (33.0-37.0); MEAN PLATELET VOLUME 9.3 fl (7.4-10.4); PLATELET COUNT 194 K/mm3 (130-400); RED BLOOD COUNT 3.09 M/mm3 (4.10-5.30); REDCELL DISTRIBUTION WIDTH-CV 13.6 % (11.5-14.5)
[2021-08-28 08:29] LABS: HEMATOCRIT 30.2 % (37.0-47.0); HEMOGLOBIN 9.8 g/dl (12.5-16.0); MEAN CORPUSCULAR HEMOGLOBIN 32 pg (27.0-31.0)
[2021-08-28 08:53] LABS: CALCIUM 8.1 mg/dL (8.4-10.2); CREATININE, serum 2.31 mg/dL (0.57-1.11); MAGNESIUM 1.6 mg/dL (1.6-2.6); POTASSIUM 4.9 mmol/L (3.5-4.5)
--- NOTE | 2021-08-28 15:48 | NUR ---
ZOE met with the patient to discuss discharge plan. The patient resides at [facility] in assisted living. She reports needing assistance with ADLs and utilizes a motorized scooter. She has a CPAP from [facility]. The patient reports that the facility assists her with her ADLs. The patient's PCP is Dr. Cathy Ernadnez and she receives her medications from [facility]. The patient has a DPOA-HC in EMR, but it designated her late son. The patient was interested in completing a new DPOA-HC while here. ZOE provided the form. The patient designated her other son, Get Allison (ph#[phone]). Get lives in [place]. ZOE and LEORA Kahn, witnessed the patient's signature. ZOE provided the patient with the original and some copies. ZOE placed a copy in the patient's chart. The patient plans on returning back to [facility] upon discharge. PT/OT are recommending that the patient can return back to [place]. ZOE contacted and faxed updates and the patient's new DPOA-HC to Claudio at [facility]. ZOE to continue to follow. *Discharge plan: [facility]*
[2021-08-29] VITALS (7 sets, daily range): BP systolic 157–175; BP diastolic 60–81; PULSE 4–94; TEMP 97.4–98.7
--- NOTE | 2021-08-29 02:24 | NUR ---
PT REFUSED TREATMENT. TOLD PATIENT TO CALL IF SHE CHANGED HER MIND. STABLE ON 1L NC
[2021-08-29 07:44] LABS: MEAN CELL VOLUME 100 fl (80.0-100.0); MEAN CORPUSCULAR HEMOGLOBIN 32 pg (27.0-31.0); MEAN CORPUSCULAR HGB CONC 32 g/dl (33.0-37.0); MEAN PLATELET VOLUME 9.8 fl (7.4-10.4); PLATELET COUNT 216 K/mm3 (130-400); RED BLOOD COUNT 3.16 M/mm3 (4.10-5.30); REDCELL DISTRIBUTION WIDTH-CV 13.2 % (11.5-14.5)
[2021-08-29 07:47] LABS: HEMATOCRIT 31.7 % (37.0-47.0)
[2021-08-29 08:01] LABS: CALCIUM 9.2 mg/dL (8.4-10.2); CREATININE, serum 2.32 mg/dL (0.57-1.11); POTASSIUM 4.9 mmol/L (3.5-4.5)
[2021-08-29 09:21] LABS: BAND 2 % (0-10); LYMPHOCYTE 2 % (20.0-51.0); NEUTROPHILS 95 % (42.0-75.2); PLATELET ESTIMATE NORMAL (NORMAL)
[2021-08-29 09:23] LABS: ANISOCYTOSIS 1+
--- NOTE | 2021-08-29 14:28 | NUR ---
ZOE faxed updates to Claudio at [facility]. *Discharge plan: [facility]*
--- NOTE | 2021-08-29 16:01 | NUR ---
Floor Finisher contacted patient's son, Get and left a message advising that patient may possibly discharge over the weekend back to [facility].
--- NOTE | 2021-08-29 19:00 | NUR ---
Patient to room 222 from medical via wheelchair. Patient is alert and oriented. Transfers to bed with standy assist and then to commode with standy assist and walker. O2 at 1L per NC and O2 sats at 100%. Plan of care reviewed with patient and patient oriented to room and call light.
[2021-08-30] VITALS: BP 153/66; PULSE 72; TEMP 98
[2021-08-30 04:00] VITALS: BP 135/75; PULSE 73; TEMP 97.6
[2021-08-30 08:00] VITALS: BP 148/62; PULSE 77; TEMP 97.4
[2021-08-30 08:01] LABS: BASO % 0.1 % (0.0-2.0); GRAN # 7.1 K/mm3 (1.4-6.5); GRAN % 81.1 % (42.2-75.2); HEMOGLOBIN 10.1 g/dl (12.5-16.0); LYMPH # 0.8 K/mm3 (1.2-3.4); LYMPH % 9.5 % (20.0-51.0); MEAN CELL VOLUME 98 fl (80.0-100.0); MEAN CORPUSCULAR HEMOGLOBIN 32 pg (27.0-31.0); MEAN CORPUSCULAR HGB CONC 32 g/dl (33.0-37.0); MEAN PLATELET VOLUME 9.8 fl (7.4-10.4); MONO # 0.8 K/mm3 (0.1-0.6); MONO % 8.7 % (1.7-9.3); PLATELET COUNT 214 K/mm3 (130-400); RED BLOOD COUNT 3.18 M/mm3 (4.10-5.30); REDCELL DISTRIBUTION WIDTH-CV 13.3 % (11.5-14.5)
[2021-08-30 08:03] LABS: HEMATOCRIT 31.3 % (37.0-47.0)
[2021-08-30 08:20] LABS: CALCIUM 9.6 mg/dL (8.4-10.2); CREATININE, serum 2.08 mg/dL (0.57-1.11); POTASSIUM 4.5 mmol/L (3.5-4.5)
[2021-08-30 12:30] VITALS: BP 140/47; PULSE 80; TEMP 97.8
[2021-08-30 17:30] VITALS: BP 148/57; PULSE 93; TEMP 97.7
[2021-08-30 19:58] VITALS: BP 167/73; PULSE 93; TEMP 98.2
[2021-08-31 00:21] VITALS: BP 145/59; PULSE 68
[2021-08-31 04:28] VITALS: BP 162/62; PULSE 73; TEMP 97.6
[2021-08-31 07:07] LABS: BASO % 0.1 % (0.0-2.0); CALCIUM 9.2 mg/dL (8.4-10.2); CREATININE, serum 2.05 mg/dL (0.57-1.11); EOS # 0.1 K/mm3 (0.0-0.7); EOS % 0.6 % (0-4.0); GRAN % 75.5 % (42.2-75.2); HEMOGLOBIN 10.1 g/dl (12.5-16.0); LYMPH # 1.1 K/mm3 (1.2-3.4); LYMPH % 13.4 % (20.0-51.0); MEAN CELL VOLUME 97 fl (80.0-100.0); MEAN CORPUSCULAR HEMOGLOBIN 32 pg (27.0-31.0); MEAN CORPUSCULAR HGB CONC 33 g/dl (33.0-37.0); MEAN PLATELET VOLUME 9.7 fl (7.4-10.4); MONO # 0.8 K/mm3 (0.1-0.6); MONO % 9.5 % (1.7-9.3); PLATELET COUNT 210 K/mm3 (130-400); POTASSIUM 4.5 mmol/L (3.5-4.5); RED BLOOD COUNT 3.18 M/mm3 (4.10-5.30); REDCELL DISTRIBUTION WIDTH-CV 13.2 % (11.5-14.5)
[2021-08-31 07:17] LABS: HEMATOCRIT 30.8 % (37.0-47.0)
[2021-08-31] MEDS ORDERED: LOPRESSOR 550 MG/TAB PO (09:07)
[2021-08-31] MEDS ORDERED: LASIX 20MG TABL20 MG PO (09:09)
--- NOTE | 2021-08-31 09:13 | NUR ---
Insulin 5 units sq given as ordered.
[2021-08-31 09:30] VITALS: BP 150/45; PULSE 73; TEMP 98
--- NOTE | 2021-08-31 11:07 | NUR ---
SW update: Informed patient needs Oxygen at 1 liter. SW contacted [facility] for support and supplies. Faxed O2 request at 11:05 a.m. and called at 11:08 am. Awaiting call from personal attendant for delivery. Will follow.
--- NOTE | 2021-08-31 12:35 | NUR ---
Called and visited with Dr. Nash. Let him know that I already gave patient peanut butter and brandon crackers for her blood sugar. Asked him if her still wanted me to give her the dextrose iv. States no, but to hold insulin. Let her eat lunch and check her blood sugar 15 minutes after she is done. Call if blood sugar less than eighty.
--- NOTE | 2021-08-31 12:43 | NUR ---
SW supported plan for DC to [facility], Previous note from social and human services assistant indicated that son was notified of DC this weekend. DTR in room with patient who will transfer to [facility] assisted living. Patient O2 was delieved Skilled orders sent via fax to [facility] at [phone]. NF>
--- NOTE | 2021-08-31 14:10 | NUR ---
Dismissed to [facility] via wheel chair with granddaughter. Discharge instructions given to patient and also have been in touch with Manasa nurse at [facility]. Assist patient in vehicle.
== END 2021-08-31 14:10 | DRG 189 ==
LOC: COL.ER 22:59 → MEDICAL 08-27 15:10 → OB 08-29 18:50
PROVIDERS: Emergency Medicine; Physician Assistant; Student in an Organized Health Care Education/Training Program; ADMIT Student in an Organized Health Care Education/Training Program
PROC: 5A0945A Assistance with Respiratory Ventilation, 24-96 Consecutive Hours, High Flow/Velocity Cannula (ICD-10-PCS; principal; 2021-08-27)
DX: J96.01 Acute respiratory failure with hypoxia (principal); J81.1 Chronic pulmonary edema; J45.901 Unspecified asthma with (acute) exacerbation; I27.20 Pulmonary hypertension, unspecified; E11.22 Type 2 diabetes mellitus with diabetic chronic kidney disease; I12.9 Hypertensive chronic kidney disease with stage 1 through stage 4 chronic kidney disease, or unspecified chronic kidney disease; N18.30 Chronic kidney disease, stage 3 unspecified; G47.33 Obstructive sleep apnea (adult) (pediatric); Z68.35 Body mass index [BMI] 35.0-35.9, adult; F41.9 Anxiety disorder, unspecified; I25.10 Atherosclerotic heart disease of native coronary artery without angina pectoris; Z95.1 Presence of aortocoronary bypass graft; E03.9 Hypothyroidism, unspecified; Z66 Do not resuscitate; J45.909 Unspecified asthma, uncomplicated; E87.5 Hyperkalemia; F32.A Depression, unspecified; J44.9 Chronic obstructive pulmonary disease, unspecified; E66.01 Morbid (severe) obesity due to excess calories; M19.90 Unspecified osteoarthritis, unspecified site; D64.9 Anemia, unspecified; E83.52 Hypercalcemia; Z90.13 Acquired absence of bilateral breasts and nipples; Z90.710 Acquired absence of both cervix and uterus; Z98.42 Cataract extraction status, left eye; Z98.41 Cataract extraction status, right eye; Z90.49 Acquired absence of other specified parts of digestive tract
CPT/HCPCS: 99223-AI; 99232-AI; 99233-AI; 99239; J1644; J1815; J1940; J2920; J2930; J7512

== ENCOUNTER 2021-09-11 20:34 | Emergency (ER) | payer MEDICARE, OTHER ==
[~2021-09-11] VITALS: Ht 162.6 cm; Wt 96.8 kg
[~2021-09-11 20:34] MED LIST changes: +ATIVAN 1MG T1 MG/TAB PO; +DESYREL 50MG50 MG PO; +FLOVENT 44MCG I13 GM IH; +PRISTIQ 50 MG T50 MG PO
[2021-09-11 20:35] VITALS: TEMP 98
[2021-09-11] MEDS ORDERED: WELLBUTRIN SR150 M1 PO (21:31)
[2021-09-11] MEDS ORDERED: PRISTIQ 50 MG T50 MG PO (21:32)
[2021-09-11] MEDS ORDERED: BENICAR 20MG TA20 MG PO (21:33)
[2021-09-11] MEDS ORDERED: NORVASC 5MG5 MG/TAB PO (21:33)
[2021-09-11 22:29] VITALS: BP 165/60; PULSE 73
== END 2021-09-11 22:29 | disposition home or self-care (01) ==
LOC: COL.ER 20:34
DX: S09.90XA Unspecified injury of head, initial encounter (principal); S50.02XA Contusion of left elbow, initial encounter; Z79.02 Long term (current) use of antithrombotics/antiplatelets; W07.XXXA Fall from chair, initial encounter; Y92.129 Unspecified place in nursing home as the place of occurrence of the external cause; W22.8XXA Striking against or struck by other objects, initial encounter

== ENCOUNTER → 2021-12-19 | Outpatient (CLI) | payer MEDICARE, OTHER ==
[~2021-12-19] MED LIST changes: +NORVASC 5MG5 MG/TAB PO
[2021-12-19 12:13] LABS: CALCIUM 9.3 mg/dL (8.4-10.2); CREATININE, serum 3.36 mg/dL (0.57-1.11); POTASSIUM 5.1 mmol/L (3.5-4.5)
== END ==
LOC: ZLAB.STJ 12:02
PROVIDERS: Internal Medicine
DX: N28.9 Disorder of kidney and ureter, unspecified (principal)

== ENCOUNTER → 2022-01-03 | Outpatient (CLI) | payer MEDICARE, OTHER ==
[2022-01-03 13:01] LABS: COLLECTION METHOD CLEAN CATCH
[2022-01-03 13:06] LABS: PH 6 (5-8); SQUAMOUS EPITHELIAL 0-2 /hpf (0-10); URINE APPEARANCE Clear (CLEAR/HAZY); URINE BACTERIA Moderate /hpf (NONE SEEN); URINE BILIRUBIN Negative (NEGATIVE); URINE BLOOD Negative (NEGATIVE); URINE COLOR Straw (YELLOW); URINE GLUCOSE 1+ (NEGATIVE); URINE KETONE Negative (NEGATIVE); URINE LEUKOCYTE ESTERASE Negative (NEGATIVE); URINE NITRATE Negative (NEGATIVE); URINE PROTEIN(semi-quant) 2+ (NEGATIVE); URINE RBC 0-2 /hpf (0-2); URINE UROBILINOGEN Negative (NEGATIVE)
== END ==
LOC: COL.LAB 11:32
PROVIDERS: Internal Medicine
DX: N39.0 Urinary tract infection, site not specified (principal)

== ENCOUNTER → 2022-01-28 | Outpatient (CLI) | payer MEDICARE, OTHER ==
[2022-01-28 10:03] LABS: COLLECTION METHOD CLEAN CATCH; PH 5 (5-8); URINE APPEARANCE Clear (CLEAR/HAZY); URINE BACTERIA None Seen /hpf (NONE SEEN); URINE BILIRUBIN Negative (NEGATIVE); URINE BLOOD 1+ (NEGATIVE); URINE COLOR Yellow (YELLOW); URINE GLUCOSE 3+ (NEGATIVE); URINE KETONE Negative (NEGATIVE); URINE LEUKOCYTE ESTERASE Negative (NEGATIVE); URINE NITRATE Negative (NEGATIVE); URINE PROTEIN(semi-quant) 3+ (NEGATIVE); URINE UROBILINOGEN Negative (NEGATIVE)
[2022-01-28 10:07] LABS: CALCIUM 8.6 mg/dL (8.4-10.2); CREATININE, serum 2.38 mg/dL (0.57-1.11)
[2022-01-28 10:12] LABS: POTASSIUM 5.8 mmol/L (3.5-4.5)
== END ==
LOC: ZLAB.STJ 09:58
PROVIDERS: Internal Medicine
DX: E11.65 Type 2 diabetes mellitus with hyperglycemia (principal); N18.30 Chronic kidney disease, stage 3 unspecified

== ENCOUNTER → 2022-02-11 | Outpatient (CLI) | payer MEDICARE, OTHER ==
[2022-02-11 10:27] LABS: CALCIUM 7.9 mg/dL (8.4-10.2); CHOLESTEROL RISK RATIO 1.9; CREATININE, serum 2.11 mg/dL (0.57-1.11); POTASSIUM 4.9 mmol/L (3.5-4.5)
[2022-02-11 10:43] LABS: THYROID STIMULATING HORMONE 2.18 uIU/mL (0.350-4.940)
== END ==
LOC: ZLAB.STJ 10:05
PROVIDERS: Internal Medicine Nephrology
DX: E11.22 Type 2 diabetes mellitus with diabetic chronic kidney disease (principal); N18.30 Chronic kidney disease, stage 3 unspecified; E11.65 Type 2 diabetes mellitus with hyperglycemia

== ENCOUNTER → 2022-05-12 | Outpatient (CLI) | payer MEDICARE, OTHER ==
[2022-05-12 14:40] LABS: CALCIUM 9.4 mg/dL (8.4-10.2); CREATININE, serum 2.74 mg/dL (0.57-1.11); POTASSIUM 5.5 mmol/L (3.5-4.5)
== END ==
LOC: ZLAB.STJ 14:06
PROVIDERS: Internal Medicine Nephrology
DX: E11.22 Type 2 diabetes mellitus with diabetic chronic kidney disease (principal); N18.4 Chronic kidney disease, stage 4 (severe)

== ENCOUNTER → 2022-07-15 | Outpatient (CLI) | payer MEDICARE, OTHER ==
[~2022-07-15] MED LIST changes: +APRESOLINE 10MG10 MG PO; +ARTIFICIAL TEA3.5 GM OP; +ASPIRIN 81M81 MG/TA2 PO; +BENICAR40 MG PO; +FERROUS SU325 MG/TAB PO; +FLONASE NASAL S16 GM NS; +REXULTI0.5 MG PO; +SODIUM BICARBO650 MG PO; +ZYRTEC5 MG PO
[2022-07-15 22:44] LABS: COLLECTION METHOD CATHETER
[2022-07-15 22:54] LABS: URINE APPEARANCE Clear (CLEAR/HAZY); URINE COLOR Straw (YELLOW); URINE GLUCOSE TRACE (NEGATIVE); URINE PROTEIN(semi-quant) 2+ (NEGATIVE)
[2022-07-15 22:55] LABS: URINE BLOOD Negative (NEGATIVE); URINE KETONE Negative (NEGATIVE); URINE NITRATE Negative (NEGATIVE); URINE UROBILINOGEN 0.2 E.U/dL (0.2-1.0)
[2022-07-15 23:03] LABS: SQUAMOUS EPITHELIAL None Seen /hpf (0-10); URINE BACTERIA Rare /hpf (NONE SEEN); URINE RBC 0-2 /hpf (0-2)
== END ==
LOC: ZLAB.STJ 22:24
PROVIDERS: Internal Medicine
DX: N18.4 Chronic kidney disease, stage 4 (severe) (principal); R30.0 Dysuria

== ENCOUNTER → 2022-07-21 | Outpatient (CLI) | payer MEDICARE, OTHER ==
[2022-07-21 13:53] LABS: CALCIUM 9.1 mg/dL (8.4-10.2); CREATININE, serum 2.74 mg/dL (0.57-1.11); PHOSPHOROUS 4.8 mg/dL (2.3-4.7); POTASSIUM 4.6 mmol/L (3.5-4.5)
== END ==
LOC: ZLAB.STJ 13:18
PROVIDERS: Internal Medicine Nephrology
DX: E21.1 Secondary hyperparathyroidism, not elsewhere classified (principal)

== ENCOUNTER 2022-12-07 13:54 | Inpatient (IN) | payer MEDICARE, OTHER ==
[~2022-12-07] VITALS: Ht 165.1 cm; Wt 91.7 kg
[2022-12-07 14:53] LABS: BASO % 0.4 % (0.0-2.0); EOS # 0.3 K/mm3 (0.0-0.7); EOS % 3.2 % (0.0-4.0); GRAN # 6.4 K/mm3 (1.4-6.5); HEMATOCRIT 40.9 % (37.0-47.0); HEMOGLOBIN 13.2 g/dl (12.5-16.0); LYMPH % 21.5 % (20.0-51.0); MEAN CELL VOLUME 99 fl (80.0-100.0); MEAN CORPUSCULAR HEMOGLOBIN 32 pg (27-31); MEAN CORPUSCULAR HGB CONC 32 g/dl (33.0-37.0); MEAN PLATELET VOLUME 9.9 fl (7.4-10.4); MONO # 0.6 K/mm3 (0.1-0.6); MONO % 6.5 % (1.7-9.3); PLATELET COUNT 194 K/mm3 (130-400); RED BLOOD COUNT 4.14 M/mm3 (4.10-5.30); REDCELL DISTRIBUTION WIDTH-CV 13.2 % (11.5-14.5)
[2022-12-07 15:02] LABS: ALBUMIN 3.4 gm/dL (3.4-4.8); BILIRUBIN,TOTAL 0.4 mg/dL (0.2-1.2); CREATININE, serum 2.75 mg/dL (0.57-1.11); POTASSIUM 4.8 mmol/L (3.5-4.5); TOTAL PROTEIN 7.2 gm/dL (6.2-8.1)
[2022-12-07 15:04] LABS: CALCIUM 13.5 mg/dL (8.4-10.2)
[2022-12-07 15:29] LABS: COLLECTION METHOD CATHETER
[2022-12-07 15:40] LABS: URINE APPEARANCE Hazy (CLEAR/HAZY); URINE COLOR Yellow (YELLOW)
[2022-12-07 15:41] LABS: PH 5.5 (5.0-8.5); URINE PROTEIN(semi-quant) 3+ (NEGATIVE)
[2022-12-07 15:42] LABS: URINE BLOOD 1+ (NEGATIVE); URINE GLUCOSE Negative (NEGATIVE); URINE KETONE Negative (NEGATIVE); URINE NITRATE Negative (NEGATIVE); URINE UROBILINOGEN 0.2 E.U/dL (0.2-1.0)
[2022-12-07 16:19] LABS: MUCOUS Present (NOT PRESENT); SQUAMOUS EPITHELIAL None Seen /hpf (0-10); URINE BACTERIA Many /hpf (NONE SEEN)
[2022-12-07] MEDS ORDERED: SYNTHROID0.088 MG/T PO (18:24)
[2022-12-07] MEDS ORDERED: RANEXA 500MG T500 MG PO (18:24)
[2022-12-07] MEDS ORDERED: FERRO-TIME325 MG PO (18:25)
[2022-12-07] MEDS ORDERED: CALCITRIOL PO (18:30)
[2022-12-07] MEDS ORDERED: NOVOLOG FLEX100 U/ML SQ ×2 (18:32→18:36)
[2022-12-07] MEDS ORDERED: LEVEMIR100 U/ML SQ (18:33)
--- NOTE | 2022-12-07 18:33 | NUR ---
arrived on unit per stretcher, moved from stretcher to bed with assist of 3, denies pain or needs at this time
[2022-12-07] MEDS ORDERED: NOVOLIN R100 UNIT/1 SQ (18:35)
[2022-12-07] MEDS ORDERED: NOVOLIN N100 UNIT/1 SQ (18:36)
[2022-12-07] MEDS ORDERED: TUMS500 MG (18:37)
[2022-12-07] MEDS ORDERED: ATIVAN 0.50.5 MG/TAB (18:39)
[2022-12-07] MEDS ORDERED: SENSIPAR30 MG PO (18:39)
[2022-12-07] MEDS ORDERED: APRESOLINE 10MG10 MG PO (18:41)
[2022-12-07] MEDS ORDERED: OXYGEN (18:42)
--- NOTE | 2022-12-07 19:02 | NUR ---
bedside shift report given to LEORA Dee, reported the patient had just arrived at 1830 and admission assessment had not been done, verbalizes understanding
[2022-12-07 19:10] VITALS: BP 100/69; PULSE 85; TEMP 97.2
[2022-12-07 22:57] VITALS: BP 148/82; PULSE 87; TEMP 98.6
[2022-12-08] VITALS (8 sets, daily range): BP systolic 108–157; BP diastolic 46–84; PULSE 75–91; TEMP 97.6–98.4
[2022-12-08 06:41] LABS: BASO % 0.3 % (0.0-2.0); EOS # 0.3 K/mm3 (0.0-0.7); EOS % 3.3 % (0.0-4.0); GRAN # 5.8 K/mm3 (1.4-6.5); GRAN % 65.6 % (42.2-75.2); HEMOGLOBIN 12.1 g/dl (12.5-16.0); LYMPH % 22.3 % (20.0-51.0); MEAN CELL VOLUME 98 fl (80.0-100.0); MEAN CORPUSCULAR HEMOGLOBIN 33 pg (27-31); MEAN CORPUSCULAR HGB CONC 33 g/dl (33.0-37.0); MEAN PLATELET VOLUME 9.8 fl (7.4-10.4); MONO # 0.7 K/mm3 (0.1-0.6); MONO % 8.2 % (1.7-9.3); PLATELET COUNT 169 K/mm3 (130-400); RED BLOOD COUNT 3.72 M/mm3 (4.10-5.30); REDCELL DISTRIBUTION WIDTH-CV 13.1 % (11.5-14.5)
--- NOTE | 2022-12-08 06:45 | NUR ---
NOTIFIED DR ESPINOZA PER PHONE OF CONSULT, WOULD LIKE DR PINEDA NOTIFIED AFTER 0700
--- NOTE | 2022-12-08 07:16 | NUR ---
Dr Velez notified per phone of consult, will be available after 1200
[2022-12-08 07:20] LABS: HEMATOCRIT 36.5 % (37.0-47.0)
[2022-12-08 07:35] LABS: ALBUMIN 2.8 gm/dL (3.4-4.8); CALCIUM 12.1 mg/dL (8.4-10.2); CREATININE, serum 2.38 mg/dL (0.57-1.11); PHOSPHOROUS 3.2 mg/dL (2.3-4.7); POTASSIUM 3.9 mmol/L (3.5-4.5)
--- NOTE | 2022-12-08 09:11 | NUR ---
Pt laying in bed. Morning medications administered per eMAR. Shift assessment completed. Pt is A&Ox3, unable to recall date. Telemetry on. Pt on 1L per NC. INT in R wrist patent, no edema or redness. Jj catheter remains in place with cloudy yellow output. No further request at this time. Call light within reach.
--- NOTE | 2022-12-08 09:19 | NUR ---
Initial visit; Patient thanked Cnc Specialist for visit and helping her with breakfast and letting her nurse know she is needing help. Cnc Specialist offered God's blessings.
--- NOTE | 2022-12-08 09:26 | NUR ---
SW met with patient at bedside to complete intake and discuss discharge plan. Patient resides at [facility]. Patient states that she has to have assistance from the [facility] staff with her ADL's and utilizes a walker to assist with mobility. Patient requires 3L of [place] oxygen at baseline that is still managed through [facility]. PCP is and she sees Dr. Rodríguez for nephrology needs. Patient does have a DPOA-HC established listing her son Get ([phone]) and a copy can be located in her EMR. Patient to still be evaluated by PT/OT. Discharge plan: [facility] * pending PT/OT rec's*
--- NOTE | 2022-12-08 13:45 | NUR ---
Pt had x3 episodes of clear, green emesis. Zofran administered by LEORA Moya.
--- NOTE | 2022-12-08 18:05 | NUR ---
Pt returned to floor from central line placement. Triple lumen L IJ in place, drainage from site noted. Post-op VS in place.
--- NOTE | 2022-12-08 20:30 | NUR ---
Initial shift assessment done- overall , alert/oriented at this time, at times will say something that is alittle off, Tele on, Jj with clear yellow urine, denies nausea at this time, wanting some water- given, left TLC intact- remains bloody under dressing- will change dressing tonight-
[2022-12-09 03:52] VITALS: BP 150/55; PULSE 84; TEMP 97.9
--- NOTE | 2022-12-09 05:36 | NUR ---
Overall a quiet night- o2 sats 96% on the 1 L/nc, Left TLC jugular dressing was changed, does have bruise at insertion site- no active bleeding,, dressing was saturated. All lumens flushed well and had good blood return.
[2022-12-09 06:29] LABS: BASO % 0.3 % (0.0-2.0); EOS # 0.2 K/mm3 (0.0-0.7); EOS % 1.6 % (0.0-4.0); GRAN # 6.6 K/mm3 (1.4-6.5); GRAN % 69.9 % (42.2-75.2); HEMATOCRIT 33.7 % (37.0-47.0); HEMOGLOBIN 10.9 g/dl (12.5-16.0); LYMPH # 1.8 K/mm3 (1.2-3.4); LYMPH % 19.5 % (20.0-51.0); MEAN CELL VOLUME 98 fl (80.0-100.0); MEAN CORPUSCULAR HEMOGLOBIN 32 pg (27-31); MEAN CORPUSCULAR HGB CONC 32 g/dl (33.0-37.0); MEAN PLATELET VOLUME 9.7 fl (7.4-10.4); MONO # 0.8 K/mm3 (0.1-0.6); MONO % 8.4 % (1.7-9.3); PLATELET COUNT 190 K/mm3 (130-400); RED BLOOD COUNT 3.44 M/mm3 (4.10-5.30); REDCELL DISTRIBUTION WIDTH-CV 12.9 % (11.5-14.5)
[2022-12-09 06:36] LABS: ALBUMIN 2.5 gm/dL (3.4-4.8); CALCIUM 11.3 mg/dL (8.4-10.2); CREATININE, serum 2.77 mg/dL (0.57-1.11); PHOSPHOROUS 3.1 mg/dL (2.3-4.7); POTASSIUM 3.8 mmol/L (3.5-4.5)
[2022-12-09 07:16] VITALS: BP 147/60; PULSE 85; TEMP 97.8
--- NOTE | 2022-12-09 08:00 | NUR ---
PATIENT ONLY ABLE TO EAT 2 BITES OF APPLESAUCE FOR BREAKFAST. PER PATIENT SHE HAS NO APPETITE.
[2022-12-09 11:26] VITALS: BP 118/82; PULSE 72; TEMP 97.6
--- NOTE | 2022-12-09 11:30 | NUR ---
PATIENT TAKEN TO [facility] FOR PARATHYRID IMAGING.
--- NOTE | 2022-12-09 13:55 | NUR ---
PHONE CALL RECIEVED FROM CANDIDA BARTH ON CASE. MADE HIM AWARE PATIENT HAD EMESIS DOWN STAIRS IN [facility], SHORTY AFTER SHE RETURNED HES HAD A SMALL AMOUNT OF EMISIS AND WAS FEELING ANUSEATED. AFTER CALL WAS PLACED HOWEVER PATIENT STATED SHE WAS FEELING BETTER, WHEN I CALLED EARLIER IT WAS TOO EARLY FOR HER IV ZOFRAN, WAS WONDERING IF WE COULD HAVE A BACK UP ANTI EMETIC. STATED "OK, JUST LEAVE IT I WILL SEE HER AGAIN LATER."
[2022-12-09 15:38] VITALS: BP 142/87; PULSE 80; TEMP 98.1
--- NOTE | 2022-12-09 15:39 | NUR ---
PT is recommending post-acute rehab. OT is recommending SNF. ZOE notified Claudio at [facility] of this. ZOE faxed updates to [facility].
[2022-12-09 20:18] VITALS: BP 131/54; PULSE 78; TEMP 97.8
[2022-12-09 23:57] VITALS: BP 158/73; PULSE 74; TEMP 98.9
[2022-12-10 03:57] VITALS: BP 159/76; PULSE 78; TEMP 97.5
[2022-12-10 06:56] LABS: BASO % 0.2 % (0.0-2.0); EOS # 0.1 K/mm3 (0.0-0.7); EOS % 1.5 % (0.0-4.0); GRAN # 6.6 K/mm3 (1.4-6.5); GRAN % 71.6 % (42.2-75.2); HEMOGLOBIN 11.1 g/dl (12.5-16.0); LYMPH # 1.7 K/mm3 (1.2-3.4); LYMPH % 18.1 % (20.0-51.0); MEAN CELL VOLUME 98 fl (80.0-100.0); MEAN CORPUSCULAR HEMOGLOBIN 32 pg (27-31); MEAN CORPUSCULAR HGB CONC 32 g/dl (33.0-37.0); MEAN PLATELET VOLUME 10.3 fl (7.4-10.4); MONO # 0.8 K/mm3 (0.1-0.6); MONO % 8.3 % (1.7-9.3); PLATELET COUNT 200 K/mm3 (130-400); RED BLOOD COUNT 3.49 M/mm3 (4.10-5.30)
[2022-12-10 06:57] LABS: HEMATOCRIT 34.3 % (37.0-47.0)
[2022-12-10 07:18] LABS: ALBUMIN 2.5 gm/dL (3.4-4.8); CALCIUM 10.2 mg/dL (8.4-10.2); CREATININE, serum 3.17 mg/dL (0.57-1.11); PHOSPHOROUS 2.7 mg/dL (2.3-4.7)
[2022-12-10 07:44] VITALS: BP 153/49; PULSE 73; TEMP 97.8
--- NOTE | 2022-12-10 08:00 | NUR ---
Patient is resting in bed, easily arousable, alert and oriented x 4, refuses eating. Assessment completed. No other needs at this time. Call cosme quinteros.
[2022-12-10 11:50] VITALS: BP 147/48; PULSE 71; TEMP 97.8
--- NOTE | 2022-12-10 13:59 | NUR ---
ZOE contacted the patient's son, Get, to review the discharge plan for SNF at [facility]. Get confirms the plan and states that he has already been in contact with La at [facility]. ZOE contacted and faxed updates to Claudio at [facility]. Claudio confirms they can accept the patient for SNF. Get #[phone] *Discharge plan: [facility] SN[facility]*
--- NOTE | 2022-12-10 15:07 | NUR ---
Patient has had 2 episodes of vomiting. Zofran provided.
[2022-12-10 15:32] VITALS: BP 134/69; PULSE 70; TEMP 97.4
--- NOTE | 2022-12-10 20:30 | NUR ---
Initial shift assessment done- denies pain at this time, tele on, L/TLC intact- occlusive dressing on- has large dark bruise at site. Did use bedpan and voided small amount urine.
[2022-12-10 20:32] VITALS: BP 162/72; PULSE 72; TEMP 97.6
--- NOTE | 2022-12-10 23:30 | NUR ---
Report received from Priscila at 2230. Denies any complaints at this time. Warm blanket given. Call light within reach.
[2022-12-10 23:42] VITALS: BP 162/84; PULSE 72; TEMP 98.5
--- NOTE | 2022-12-11 02:15 | NUR ---
Report received from Mariaelena Patel. Pt resting with eyes closed. Call light within reach.
[2022-12-11 04:02] VITALS: BP 168/82; PULSE 67; TEMP 98.2
[2022-12-11 04:34] LABS: BASO % 0.2 % (0.0-2.0); EOS # 0.2 K/mm3 (0.0-0.7); EOS % 2.4 % (0.0-4.0); GRAN # 5.4 K/mm3 (1.4-6.5); HEMATOCRIT 35.1 % (37.0-47.0); HEMOGLOBIN 11.9 g/dl (12.5-16.0); LYMPH # 1.9 K/mm3 (1.2-3.4); LYMPH % 22.9 % (20.0-51.0); MEAN CELL VOLUME 97 fl (80.0-100.0); MEAN CORPUSCULAR HEMOGLOBIN 33 pg (27-31); MEAN CORPUSCULAR HGB CONC 34 g/dl (33.0-37.0); MEAN PLATELET VOLUME 9.9 fl (7.4-10.4); MONO # 0.8 K/mm3 (0.1-0.6); MONO % 9.1 % (1.7-9.3); PLATELET COUNT 201 K/mm3 (130-400); RED BLOOD COUNT 3.63 M/mm3 (4.10-5.30); REDCELL DISTRIBUTION WIDTH-CV 12.9 % (11.5-14.5)
[2022-12-11 04:45] LABS: ALBUMIN 2.4 gm/dL (3.4-4.8); CALCIUM 9.6 mg/dL (8.4-10.2); CREATININE, serum 3.29 mg/dL (0.57-1.11); PHOSPHOROUS 2.4 mg/dL (2.3-4.7); POTASSIUM 4.2 mmol/L (3.5-4.5)
--- NOTE | 2022-12-11 05:38 | NUR ---
Pt c/o neck discomfort rated 6/10. PRN tylenol given and pt repositioned. Pt denies further needs. Call light within reach.
[2022-12-11 08:17] VITALS: BP 151/51; PULSE 76; TEMP 98.8
--- NOTE | 2022-12-11 08:56 | NUR ---
Call placed to DR. Bradshaw by Vandana, yesterday. message was left. Today fluorescent solution mixer is Dr. Kumar, it was called for consult.
--- NOTE | 2022-12-11 09:03 | NUR ---
Call placed to [facility] to ask for pt medication Rexulti. They will bring it to the hospital.
--- NOTE | 2022-12-11 09:37 | NUR ---
Patient is resting in bed easily arousable. Alert and oriented x 4, VSS. Denies any pain at this time. No nausea or vomiting this morning. Ordered some oatmeal for breakfast. Assessment completed, meds provided. No other needs at this time. Call light within reach.
[2022-12-11] MEDS ORDERED: LEVAQUIN 5500 MG/TA1 PO (11:49)
[2022-12-11] MEDS ORDERED: LOPRESSOR 225 MG/TAB PO (11:51)
[2022-12-11 12:05] VITALS: BP 142/54; PULSE 67; TEMP 97.8
--- NOTE | 2022-12-11 14:00 | NUR ---
Central line removed by charge nurse Mona. IV and telemetry discontinued. Report given to LEORA Oconnor at [facility].
[2022-12-11 14:03] VITALS: BP 142/54; PULSE 67; TEMP 97.8
[2022-12-11] MEDS ORDERED: ZOFRAN 4MG T4 MG/TAB PO (14:06)
--- NOTE | 2022-12-11 15:54 | NUR ---
group care worker notified ZOE that Dr. Rodríguez wanted to speak to this SW for an update on the patient and that he was on the surgical unit. ZOE walked to the surgical unit to update Dr. Rodríguez. Dr. Rodríguez was not there. ZOE contacted Dr. Rodríguez to provide an update. Dr. Rodríguez reports that he already left the hospital, but is ready to discharge the patient. The patient is to discharge today, 12/11, back to [facility] for a skilled stay. Transportation was scheduled at 1330, via [facility]. ZOE informed the patient's son (Get) and RN of the transport time. ZOE read the IM form to Get over the phone. Get verbalized understanding and agreement to discharge today. He gave approval to sign the form on her behalf. No additional needs at this time.
== END 2022-12-11 14:21 | DRG 690 ==
LOC: COL.ER 13:54 → MEDICAL 15:37
PROVIDERS: Family Medicine; Surgery; ADMIT Internal Medicine Nephrology
PROC: 05HN33Z Insertion of Infusion Device into Left Internal Jugular Vein, Percutaneous Approach (ICD-10-PCS; principal; 2022-12-08 17:45)
DX: N39.0 Urinary tract infection, site not specified (principal); I69.354 Hemiplegia and hemiparesis following cerebral infarction affecting left non-dominant side; N18.4 Chronic kidney disease, stage 4 (severe); E83.52 Hypercalcemia; E78.5 Hyperlipidemia, unspecified; I25.10 Atherosclerotic heart disease of native coronary artery without angina pectoris; I27.20 Pulmonary hypertension, unspecified; G47.30 Sleep apnea, unspecified; E11.22 Type 2 diabetes mellitus with diabetic chronic kidney disease; I12.9 Hypertensive chronic kidney disease with stage 1 through stage 4 chronic kidney disease, or unspecified chronic kidney disease; E03.9 Hypothyroidism, unspecified; D64.9 Anemia, unspecified; F41.9 Anxiety disorder, unspecified; E21.3 Hyperparathyroidism, unspecified; Z96.653 Presence of artificial knee joint, bilateral; M19.90 Unspecified osteoarthritis, unspecified site; E66.01 Morbid (severe) obesity due to excess calories; J44.9 Chronic obstructive pulmonary disease, unspecified; F32.A Depression, unspecified; Z90.49 Acquired absence of other specified parts of digestive tract; Z85.3 Personal history of malignant neoplasm of breast; Z90.13 Acquired absence of bilateral breasts and nipples; Z95.1 Presence of aortocoronary bypass graft; Z90.710 Acquired absence of both cervix and uterus; Z85.42 Personal history of malignant neoplasm of other parts of uterus; Z87.442 Personal history of urinary calculi; Z88.6 Allergy status to analgesic agent; Z88.1 Allergy status to other antibiotic agents; Z88.8 Allergy status to other drugs, medicaments and biological substances; Z79.890 Hormone replacement therapy; Z79.82 Long term (current) use of aspirin; Z79.4 Long term (current) use of insulin; Z23 Encounter for immunization; Z68.32 Body mass index [BMI] 32.0-32.9, adult
CPT/HCPCS: A4314; A9500; C1751; J1815; J1940; J1956; J2405; J2430; J7030; Q9967

== ENCOUNTER 2023-10-07 15:22 | Emergency (ER) | payer MEDICARE, OTHER ==
[~2023-10-07] VITALS: Ht 162.6 cm; Wt 94.1 kg
[~2023-10-07 15:22] MED LIST changes: +ARTIFICIAL TEAR15 M7 OP; +ATIVAN 0.50.5 MG/TAB; +COUMADIN 1010 MG/TAB PO; +COUMADIN 5MG5 MG/TAB PO; +FERRO-TIME325 MG PO; -FLONASE NASAL S16 GM NS; +FLONASEALLERGY NS; +LEVAQUIN 5500 MG/TA1 PO; +LEVEMIR100 U/ML SQ; +NOVOLIN R100 UNIT/1 SQ; +NOVOLOG FLEX100 U/ML SQ; +NYSTATIN POWDER30 GM TOP; +OXYGEN; +PACERONE400 MG PO; +SENSIPAR30 MG PO; +SYNTHROID0.088 MG/T PO; +TUMS500 MG; +VITAMIN B COMPL1 SGL PO; +ZOFRAN 4MG T4 MG/TAB PO
[2023-10-07 15:26] VITALS: TEMP 98.6
[2023-10-07 17:12] LABS: BASO % 0.4 % (0.0-2.0); GRAN # 8.7 K/mm3 (1.4-6.5); LYMPH # 0.8 K/mm3 (1.2-3.4); LYMPH % 7.5 % (20.0-51.0); MEAN CELL VOLUME 105 fl (80.0-100.0); MEAN CORPUSCULAR HGB CONC 32 g/dl (33.0-37.0); MEAN PLATELET VOLUME 9.7 fl (7.4-10.4); MONO # 0.8 K/mm3 (0.1-0.6); MONO % 7.5 % (1.7-9.3); PLATELET COUNT 240 K/mm3 (130-400); RED BLOOD COUNT 2.55 M/mm3 (4.10-5.30); REDCELL DISTRIBUTION WIDTH-CV 14.3 % (11.5-14.5)
[2023-10-07 17:13] LABS: HEMATOCRIT 26.7 % (37.0-47.0); HEMOGLOBIN 8.5 g/dl (12.5-16.0); MEAN CORPUSCULAR HEMOGLOBIN 33 pg (27-31)
[2023-10-07 17:27] LABS: ALBUMIN 2.8 gm/dL (3.4-4.8); BILIRUBIN,TOTAL 0.3 mg/dL (0.2-1.2); CALCIUM 9.4 mg/dL (8.4-10.2); CREATININE, serum 3.02 mg/dL (0.57-1.11); POTASSIUM 4.3 mmol/L (3.5-4.5); TOTAL PROTEIN 6.2 gm/dL (6.2-8.1)
[2023-10-07 17:34] LABS: TROPONIN-I 0.8 ng/mL (0.00-0.033)
[2023-10-07 19:05] VITALS: BP 112/64; PULSE 82
== END 2023-10-07 20:22 | disposition home or self-care (01) ==
LOC: COL.ER 15:22
PROVIDERS: Personal Emergency Response Attendant
DX: U07.1 COVID-19 (principal); I13.0 Hypertensive heart and chronic kidney disease with heart failure and stage 1 through stage 4 chronic kidney disease, or unspecified chronic kidney disease; E11.22 Type 2 diabetes mellitus with diabetic chronic kidney disease; I50.9 Heart failure, unspecified; N18.9 Chronic kidney disease, unspecified; R05.9 Cough, unspecified; Z99.2 Dependence on renal dialysis